=== PATIENT | male | born 1945 | race Caucasian/White ===

== ENCOUNTER → 2019-06-20 | Outpatient (CLI) | payer OTHER ==
[~2019-06-20] MED LIST: LEVO88TA2 PO; RT-ALBUTEROL SULF 2.5 MG/3 ML PRE-MIX VIAL INH ONE; RT-ALBUTEROL SULF 2.5 MG/3 ML PRE-MIX VIAL ONE
== END ==
LOC: RT 12:13
PROVIDERS: ATTEND Nurse Practitioner Family
DX: J43.9 Emphysema, unspecified (principal); Z72.0 Tobacco use
CPT/HCPCS: 94060; 94726; 94729

== ENCOUNTER → 2019-06-24 | Outpatient (CLI) | payer OTHER ==
[~2019-06-24] MED LIST changes: -RT-ALBUTEROL SULF 2.5 MG/3 ML PRE-MIX VIAL INH ONE; -RT-ALBUTEROL SULF 2.5 MG/3 ML PRE-MIX VIAL ONE
--- NOTE | 2019-06-24 13:28 | Diagnostic Imaging Report ---
INDICATION: Lung mass and cough. TECHNIQUE: Serum blood glucose level at the time of injection is 90 mg/dL. Patient was administered 15.3 mCi F-18 FDG intravenously and PET imaging was performed from the top of skull to mid thighs. Noncontrast CT was also performed for attenuation correction and anatomic correlation. All CT scans use one or more of the following dose optimizing techniques: automated exposure control, MA and/or KvP adjustment based on patient size and exam type or iterative reconstruction. COMPARISON: No prior PET CT studies available for comparison. FINDINGS: There is symmetric activity within the brain. Soft tissues of the neck are unremarkable. There is a spiculated hypermetabolic nodule in the medial left upper lobe measuring 9 mm in size. SUV max is 7.3 and this is concerning for small lung neoplasm. There is a second tiny hypermetabolic nodule in the left upper lobe slightly more inferior. This is just lateral to the aortic arch and demonstrates some activity with SUV max of 4.1. The remainder of the lung andrew are unremarkable. No mediastinal or hilar hypermetabolism is identified. Imaging to the abdomen and pelvis does show physiologic activity within the gastrointestinal and genitourinary tracts. There is an area of hypermetabolism in the left suprarenal location. This is lateral to the left adrenal gland and posterior to the stomach and slightly cephalad to the pancreatic tail. This demonstrates an SUV max of 16.9. Ill-defined soft tissue is identified on the noncontrast CT. No other suspicious foci are identified. IMPRESSION: 1. 9 mm spiculated left upper lobe nodule demonstrating hypermetabolism and suspicious for a small lung neoplasm. There is a second 6 mm nodule in the left upper lobe that also demonstrates hypermetabolism and this too may represent a tiny neoplastic nodule. 2. Hypermetabolic focus in the left upper quadrant of the abdomen in the suprarenal location, indeterminate. This is just lateral to the left adrenal gland and slightly cephalad to the pancreatic tail. Dedicated CT abdomen and pelvis would be recommended for further evaluation. Dictated by: Dictated on workstation # [id number]
== END ==
LOC: RAD 09:17 → EDUNIT# 09:45
PROVIDERS: ATTEND Nurse Practitioner Family
DX: J44.9 Chronic obstructive pulmonary disease, unspecified (principal); R91.8 Other nonspecific abnormal finding of lung field; R05 Cough; Z72.0 Tobacco use

== ENCOUNTER 2019-06-25 05:46 | Outpatient (CLI) | payer OTHER ==
[~2019-06-25] VITALS: Ht 172.7 cm; Wt 63.6 kg
[2019-06-25] MEDS ORDERED: LEVO88TA2 PO (12:11)
== END 2019-06-25 12:16 | disposition home or self-care (01) ==
LOC: PREOP 05:46
PROVIDERS: ATTEND Internal Medicine Critical Care Medicine
DX: Z01.818 Encounter for other preprocedural examination (principal)

== ENCOUNTER → 2019-06-30 | Outpatient (CLI) | payer OTHER ==
[~2019-06-30] MED LIST changes: +BARIUM SUSPENSION 2.1% (VANILLA SILQ) 450 ML PO ONE; +CATHETER FLUSH 10 ML SYR IV PRN; +HOLD METFORMIN - RECEIVED CONTRAST 20 ML VIAL IV SCH; +IOHEXOL 350 MG/ML 100 ML (OMNIPAQUE 350) VIAL IV ONE; +NS 100 ML (IVPB) BAG IV ONE
--- NOTE | 2019-06-30 10:18 | Diagnostic Imaging Report ---
PROCEDURE: CT abdomen and pelvis with and without contrast. TECHNIQUE: Precontrast acquisitions were acquired through the abdomen and pelvis. Multiple contiguous axial images were obtained through the abdomen and pelvis after the administration of intravenous contrast. Auto Exposure Controls were utilized during the CT exam to meet ALARA standards for radiation dose reduction. INDICATION: Pancreatic mass. FINDINGS: The lung bases are clear. The liver is normal in size without focal lesions. The gallbladder is unremarkable. There is no biliary ductal dilatation. The spleen is normal. There is a 2.3 cm low-density mass in the tail of the pancreas. The adrenal glands are unremarkable. The kidneys are normal in appearance. There is some atherosclerotic calcification of the aorta which is otherwise nonaneurysmal. The bowel gas pattern is nonspecific. There are small cysts in the kidneys. There is no free air. There is no ascites. There are no focal inflammatory changes. There is no pelvic mass, adenopathy, or free fluid. There are mild degenerative changes in the spine. IMPRESSION: There is a 2.3 cm low-density mass in the tail of the pancreas, suspect for pancreatic neoplasm. Small bilateral renal cysts. Dictated by: Dictated on workstation # [id number]
== END ==
LOC: RAD FS 08:49
PROVIDERS: ATTEND Internal Medicine Critical Care Medicine
DX: K86.89 Other specified diseases of pancreas (principal); N28.1 Cyst of kidney, acquired
CPT/HCPCS: 74178

== ENCOUNTER 2019-09-11 07:06 | Day surgery (SDC) | payer OTHER ==
[~2019-09-11] VITALS: Ht 172.7 cm; Wt 59.9 kg
[~2019-09-11 07:06] MED LIST changes: -BARIUM SUSPENSION 2.1% (VANILLA SILQ) 450 ML PO ONE; -CATHETER FLUSH 10 ML SYR IV PRN; -HOLD METFORMIN - RECEIVED CONTRAST 20 ML VIAL IV SCH; -IOHEXOL 350 MG/ML 100 ML (OMNIPAQUE 350) VIAL IV ONE; -NS 100 ML (IVPB) BAG IV ONE
--- OUTSIDE RECORDS SUMMARY | 2019-09-11 07:10 | XMS REPORT | Continuity of Care Document ---
Author Organization Unknown Address Unknown Phone Unavailable Allergies Active Description Code Type Severity Reaction Onset Reported/Identified Relationship to Patient Clinical Status Yes No Known Drug Allergies [id number] Drug Allergy Unknown N/A 06/20/2019 Medications There is no data. Problems Date Dx Coded Attending Type Code Diagnosis Diagnosed By 06/25/2019 RUTH VALDES DO Ot Z01.818 ENCOUNTER FOR OTHER PREPROCEDURAL EXAMIN 06/25/2019 SUNNI SUSANAN E COST ACCOUNTING MANAGER Ot J44.9 CHRONIC OBSTRUCTIVE PULMONARY DISEASE, U 06/25/2019 SUNNI, SUSANNA E COST ACCOUNTING MANAGER Ot R05 COUGH 06/25/2019 SUNNI, SUSANNA E COST ACCOUNTING MANAGER Ot R91.8 OTHER NONSPECIFIC ABNORMAL FINDING OF CINTHIA 06/25/2019 SUNNI, SUSANNA E COST ACCOUNTING MANAGER Ot Z72.0 TOBACCO USE 06/25/2019 SUNNI, SUSANNA E COST ACCOUNTING MANAGER Ot J43.9 EMPHYSEMA, UNSPECIFIED 06/25/2019 SUNNI, SUSANNA E COST ACCOUNTING MANAGER Ot Z72.0 TOBACCO USE 06/26/2019 SUNNI, SUSANNA E COST ACCOUNTING MANAGER Ot J43.9 EMPHYSEMA, UNSPECIFIED 06/26/2019 SUNNI, SUSANNA E COST ACCOUNTING MANAGER Ot Z72.0 TOBACCO USE 06/26/2019 SUNNI, SUSANNA E COST ACCOUNTING MANAGER Ot J44.9 CHRONIC OBSTRUCTIVE PULMONARY DISEASE, U 06/26/2019 SUNNI, SUSANNA E COST ACCOUNTING MANAGER Ot R05 COUGH 06/26/2019 SUNNI, SUSANNA E COST ACCOUNTING MANAGER Ot R91.8 OTHER NONSPECIFIC ABNORMAL FINDING OF CINTHIA 06/26/2019 SUNNI, SUSANNA E COST ACCOUNTING MANAGER Ot Z72.0 TOBACCO USE 06/26/2019 RUTH VALDES DO Ot Z01.818 ENCOUNTER FOR OTHER PREPROCEDURAL EXAMIN 06/26/2019 RUTH VALDES DO Ot F17.210 NICOTINE DEPENDENCE, CIGARETTES, UNCOMPL 06/26/2019 RUTH VALDES DO Ot J44. 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 89 OTHER SPECIFIED DISEASES OF PANCREAS 07/01/2019 RUTH VALDES DO Ot N28. 1 CYST OF KIDNEY, ACQUIRED 07/18/2019 RUTH VALDES DO Ot F17.210 NICOTINE DEPENDENCE, CIGARETTES, UNCOMPL 07/18/2019 RUTH VALDES DO Ot J44. 9 CHRONIC OBSTRUCTIVE PULMONARY DISEASE, U 07/18/2019 LUCIO DO, RUTH Fernandez Ot R05 COUGH 07/18/2019 LUCIO DO, RUTH Fernandez Ot Z79.899 OTHER PLUG DRILL OPERATOR (CURRENT) DRUG THERAPY 07/20/2019 RUTH VALDES DO Ot F17.210 NICOTINE DEPENDENCE, CIGARETTES, UNCOMPL 07/20/2019 RUTH VALDES DO Ot J44. 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 9 CHRONIC OBSTRUCTIVE PULMONARY DISEASE, U 08/11/2019 RUTH VALDES DO Ot R05 COUGH 08/11/2019 LUCIO DORUTH Ot Z79.899 OTHER FPC (CURRENT) DRUG THERAPY 08/11/2019 RUTH VALDES DO Ot F17.210 NICOTINE DEPENDENCE, CIGARETTES, UNCOMPL 08/11/2019 RUTH VALDES DO Ot J44. 9 CHRONIC OBSTRUCTIVE PULMONARY DISEASE, U 08/11/2019 LUCIORUTH DE LA FUENTE DO Ot R05 COUGH 08/11/2019 LUCIO CORREIARUTH Ot Z79.899 OTHER FPC (CURRENT) DRUG THERAPY Procedures There is no data. Results Test Result Range Complete blood count (CBC) with automate d white blood cell (WBC) differential - 06/26/19 08:47 Blood leukocytes automated count (number/volume) 6.2 10*3/uL 4.3-11.0 Blood erythrocytes automated count (number/volume) 4.15 10*6/uL 4.35-5.85 Venous blood hemoglobin measurement (mass/volume) 11.9 g/dL 13.3-17.7 Blood hematocrit (volume fraction) 35 % 40-54 Automated erythrocyte mean corpuscular volume 85 [ foz_us] 80-99 Automated erythrocyte mean corpuscular h emoglobin (mass per erythrocyte) 29 pg 25-34 Automated erythrocyte mean corpuscular h emoglobin concentration measurement (mass/volume) 34 g/dL 32-36 Automated erythrocyte distribution width ratio 22. 9 % 10.0- 14.5 Automated blood platelet count (count/volume) 69 1 0*3/uL 130-400 Automated blood neutrophils/100 leukocytes 51 % 42-75 Automated blood lymphocytes/100 leukocytes 26 % 12-44 Blood monocytes/100 leukocytes 19 % 0-12 Automated blood eosinophils/100 leukocytes 3 % 0-10 Automated blood basophils/100 leukocytes 1 % 0-10 Blood neutrophils automated count (number/volume) 3.2 10*3 1.8-7.8 Blood lymphocytes automated count (number/volume) 1.6 10*3 1.0-4.0 Blood monocytes automated count (number/volume) 1. 2 10*3 0.0-1.0 Automated eosinophil count 0.2 10*3/uL 0 .0-0.3 Automated blood basophil count (count/volume) 0.1 10*3/uL 0.0-0.1 Comprehensive metabolic panel - 06/26/19 08:47 Serum or plasma sodium measurement (moles/volume) 139 mmol/L 135-145 Serum or plasma potassium measurement (moles/volume) 4.3 mmol/L 3.6-5.0 Serum or plasma chloride measurement (moles/volume) 107 mmol/L 98-107 Carbon dioxide 26 mmol/L 21-32 Serum or plasma anion gap determination (moles/volume) 6 mmol/L 5-14 Serum or plasma urea nitrogen measurement (mass/volume ) 16 mg/dL 7-18 Serum or plasma creatinine measurement (mass/volume) 0.87 mg/dL 0.60-1.30 Serum or plasma urea nitrogen/creatinine mass ratio 18 NRG Serum or plasma creatinine measurement w ith calculation of estimated glomerular filtration rate > NRG Serum or plasma glucose measurement (mass/volume) 93 mg/dL 70-105 Serum or plasma calcium measurement (mass/volume) 9.0 mg/dL 8.5-10.1 Serum or plasma total bilirubin measurement (mass/volu me) 0.4 mg/dL 0.1-1.0 Serum or plasma alkaline phosphatase ada surement (enzymatic activity/volume) 48 U/L 40-136 Serum or plasma aspartate aminotransfera se measurement (enzymatic activity/volume) 15 U/L 5-34 Serum or plasma alanine aminotransferase measurement (enzymatic activity/volume) 16 U/L 0-55 Serum or plasma protein measurement (mass/volume) 6.2 g/dL 6.4-8.2 Serum or plasma albumin measurement (mass/volume) 3.7 g/dL 3.2-4.5 CALCIUM CORRECTED 9.2 mg/dL 8.5-10.1 Serum or plasma amylase measurement (enz ymatic activity/volume) - 06/26/19 08:47 Serum or plasma amylase measurement (enzymatic activit y/volume) 32 U/L 25-125 Lipase - 06/26/19 08:47 Lipase 16 U/L 8-78 Manual absolute plasma cell count - 11/07 08:47 Blood monocytes/100 leukocytes 17 % NRG Manual blood segmented neutrophils/100 leukocytes 64 % NRG Blood band neutrophils/100 leukocytes 0 % NRG Manual blood lymphocytes/100 leukocytes 12 % NRG Manual eosinophils/100 leukocytes in nose 2 % NRG Manual blood basophils/100 leukocytes 0 % NRG Blood lymphocytes variant/100 leukocytes 5 % NRG Blood anisocytosis detection by light microscopy M ARKED NRG Blood target cells detection by light microscopy M ODERATE NRG Blood spherocytes detection by light microscopy SL IGHT NRG Blood schistocytes detection by light microscopy S LIGHT NRG CA 19-9 - 02/06/20 08:47 CA 19-9 C 3488 u[iU]/mL 0-37 Sputum Gram stain - 06/26/19 09:30 Sputum Gram stain relevant, interpret with caution . NRG Bacteria identification in bronchial spe cimen by aerobe culture - 06/26/19 09:30 QUANTITY OF GROWTH . NRG Bacteria identification in bronchial specimen by aerob e culture [id number] NRG FTX;REPORTABLE OBSERVED ON PLATES AT [facility] NRG Mycobacterium species detection by organ ism specific culture - 06/26/19 09:30 QUANTITY OF GROWTH FEW NRG Mycobacterium species detection by organism specific c ulture [id number] NRG Fungus culture - 06/26/19 09:31 QUANTITY OF GROWTH Rare NRG Fungus culture [id number] NRG Encounters ACCT No. Visit Date/Time Discharge Status Pt. Type Provider Facility Loc./Unit Complaint [id number] 06/30/2019 08:49:00 020 23:59:59 CLS Outpatient RUTH VALDES DO [facility] RAD FS PANCREATIC MASS [id number] 06/26/2019 07:40:00 020 11:05:00 DIS Outpatient RUTH VALDES DO [facility] ENDO DYSPNEA/COUGH/COPD/OTHE R NONSPECIFIC ABNORMAL FIND [id number] 06/25/2019 05:46:00 12:16:00 DIS Outpatient RUTH VALDES DO [facility] PREOP BRONCHOSCOPY [id number] 06/24/2019 09:17:00 23:59:59 CLS Outpatient SUSANNA MOELLER APRN [facility] RAD COUGH,TOBACCO U SER [id number] 06/20/2019 12:13:00 020 23:59:59 CLS Outpatient SUSANNA MOELLER COST ACCOUNTING MANAGER [facility] RT COUGH,TOBACCO U SER [id number] 09/10/2019 14:33:[address] Outpatient DEBRA BACH [facility] ONC
[2019-09-11] MEDS ORDERED: 0.9% SODIUM CHLORIDE PF INJ 20 ML VIAL ONE (07:12)
[2019-09-11] MEDS ORDERED: HEParin (CENTRAL IV FLUSH) 500 UNIT/5 ML SYR ONE (07:12)
[2019-09-11] MEDS ORDERED: BUP/EPI 0.5% 1:200,000 (SENSORCAINE) 30 ML VIAL ONE (07:12)
[2019-09-11 07:20] VITALS: BP 121/71
[2019-09-11] MEDS ORDERED: fentaNYL INJECTION 100 MCG/2 ML AMP ONE (07:25)
[2019-09-11] MEDS ORDERED: MIDAZOLAM 2 MG/2 ML (VERSED) VIAL ONE (07:25)
[2019-09-11] MEDS ORDERED: PROPOFOL INJECTION 50 ML IV ONE (07:25)
[2019-09-11] MEDS ORDERED: LACTATED RINGERS 1,000 ML IV PRN (07:56)
[2019-09-11] MEDS ORDERED: ceFAZolin INJECTION 1,000 MG ONE (07:59)
[2019-09-11] MEDS ORDERED: WATER (STERILE) FOR INJECTION 10 ML ONE (07:59)
[2019-09-11] MEDS ORDERED: BUDE10.22 IH (08:00)
[2019-09-11] MEDS ORDERED: TIOT18CA2 IH (08:00)
[2019-09-11] MEDS ORDERED: RT-ALBUINH INH (08:00)
[2019-09-11] MEDS ORDERED: LEVO125T6 PO (08:01)
[2019-09-11] MEDS ORDERED: ceFAZolin INJECTION 1,000 MG in WATER (STERILE) FOR INJECTION 10 ML IV ONE (08:15)
[2019-09-11] MEDS ORDERED: CATHETER FLUSH 10 ML SYR IV PRN (08:15)
--- NOTE | 2019-09-11 08:49 | Progress Note-Pre Operative ---
Pre-Operative Progress Note H&P Reviewed The H&P was reviewed, patient examined and no changes noted. Date Seen by Provider: Sep 11, 2019 Time Seen by Provider: 08:39 Date H&P Reviewed: Sep 11, 2019 Time H&P Reviewed: 08:39 Pre-Operative Diagnosis: pancreatic ca c mets LARY SCOTT DO Sep 11, 2019 08:49
[2019-09-11] MEDS ORDERED: ONDANSETRON 4 MG/2 ML (SDV) Z0FRAN ONE (09:19)
[2019-09-11 09:30] VITALS: BP 110/59
--- NOTE | 2019-09-11 09:38 | Discharge Inst-Simple/Standard ---
Discharge Inst-Standard Patient Instructions/Follow Up Plan of Care/Instructions/FU: Ice pack on 15 min and off 30 min and repeat for discomfort and to reduce swelling. Becky 2-3 weeks. Activity as Tolerated: No Discharge Diet: Regular Diet Other Inst to Patient Follow up Appt: Make appointment for 2 week. Instructions: No lifting greater than 10 pounds. No strenuous activity. May shower in 24 hours, no tub bath or soaking. Use incentive spirometer at home as directed. No Smoking Skin/Wound Care: You have special glue over your incision that will fall off on it's own. Symptoms to Report: Appetite Changes, Extremity Discoloration, Numbness/Tingling, Swelling Increased, Bleeding Excessive, Eyesight Changes, Pain Increased, Urine Color Change, Constipation(Persistent), Fever over 101 degree F, Pain/Pressure in chest, Urinating Difficulty, Cough Up/Vomit Blood, Heart Beat Irreg/Pounding, Pain/Pressure in jaw, Vaginal Bleeding Increase, Cramps in feet or legs, Lightheadedness, Pain/Pressure in shoulder, Diarrhea(Persistent), Memory Changes Suddenly, Questions/Concerns, Weight gain consecutive days, Dizziness/Fainting, Nausea/Vomiting, Shortness of Breath, Weight gain over 2 pounds If questions or concerns contact your physician Or seek help at emergency department. LARY SCOTT DO Sep 11, 2019 09:38
[2019-09-11 09:40] VITALS: BP 115/69
[2019-09-11] MEDS ORDERED: ONDANSETRON 4 MG/2 ML (SDV) Z0FRAN IVP PRN (09:45)
[2019-09-11] MEDS ORDERED: HYDROmorphone 2 MG/ML VIAL (DILAUDID) IV ONE (09:45)
--- NOTE | 2019-09-11 09:46 | Progress Note-Post Operative ---
Post-Operative Progess Note Surgeon (s)/Field Crop Grower (s) Surgeon LARY SCOTT DO Field Crop Grower: na Pre-Operative Diagnosis pancreatic ca c mets Post-Operative Diagnosis same Procedure & Operative Findings Date of Procedure 09/11/19 Procedure Performed/Findings PROCEDURE: Right internal jugular port placement using ultrasound guidance. COMPLICATIONS: None. INDICATIONS: The patient is a 74 year old male with metastatic pancreatic cancer. Patient understands the risks and benefits of port placement and wished to proceed with the procedure. Consent was signed on the chart. PROCEDURE: The patient was taken to the operating suite, was prepped and draped in the sterile fashion. A surgical pause was performed. Ultrasound was used to locate the internal jugular vein. Once located anesthetic was infiltrated above it. Using micro-access kit, the right internal vein was accessed. Dark nonpulsatile blood was withdrawn. The wire was inserted. Fluoroscopy assured proper placement. The needle was removed. The micro-access dilator was advanced over the wire and the wire was removed. The regular wire was inserted and fluoroscopy assured proper placement. The wire was then secured. Local anesthetic was used to anesthetize from the neck for tunneling down to the right chest and for pocket creation. A 15 blade scalpel was used to make an incision over the right chest. Cautery was used to dissect down to the pectoral fascia. A pocket was created with blunt dissection. The dilator sheath was then advanced over the wire under fluoroscopy and the dilator and wire were removed. The Groshong catheter was inserted through the sheath and the sheath was then removed. The Groshong wire was removed. The catheter was then tunneled to the right chest pocket. Fluoroscopy was used to cut to length and this was then attached to the port which was then placed within the pocket. The port was then accessed without difficulty. It was then flushed with saline and then heparin. The subcutaneous tissues were then reapproximated using 3-0 Vicryl. The areas were then washed and dried. Skin Affix was placed over incision. The insertion point of the neck Skin Affix was placed over the incision. The patient tolerated the procedure well without complication and was taken to recovery room in stable condition. Chest x-ray is pending. Anesthesia Type mac local Estimated Blood Loss Estimated blood loss (mL): min Specimens/Packing Specimens Removed LARY Buchanan DO Sep 11, 2019 09:45
[2019-09-11 09:50] VITALS: BP 118/63
--- NOTE | 2019-09-11 09:56 | Diagnostic Imaging Report ---
INDICATION: Port placement COMPARISON is made study of 06/26/2019 Single AP view of the chest reveals heart size and pulmonary vascularity within normal limits. There is no evidence of pneumothorax. There is mild blunting of left costophrenic sulcus. Occasional calcified granulomas are seen. Right anterior chest wall port is in place with catheter tip reaching the upper superior vena cava. IMPRESSION: There maybe a small amount of left pleural fluid. Otherwise, there is no evidence of acute abnormality or complication post port placement. Dictated by: Dictated on workstation # [id number]
[2019-09-11 10:00] VITALS: BP_SYST 117; BP_SYST 118; BP_DIAS 62; BP_DIAS 63
--- NOTE | 2019-09-11 10:04 | Diagnostic Imaging Report ---
INDICATION: PowerPort placement COMPARISON: Unavailable TECHNIQUE: Single intraoperative image of the upper chest is obtained dated 09/11/2019. FINDINGS: Intraoperative imaging demonstrates a right-sided Port-A-Cath in place with the distal tip extending into the superior vena cava where the distal tip is not optimally visualized. IMPRESSION: Intraoperative imaging from placement of a right-sided Port-A-Cath. Recommend dedicated radiographs of the chest at the completion of the exam to evaluate the entire catheter and to evaluate for any possible postprocedural complication. See surgical note for full details. Fluoroscopy time: 32.8 seconds. Dictated by: Dictated on workstation # [id number]
[2019-09-11 10:30] VITALS: BP 123/67
--- NOTE | 2019-09-11 11:08 | Anesthesia-General Post-Op ---
MAC Patient Condition Mental Status/LOC: Same as Preop Cardiovascular: Satisfactory Nausea/Vomiting: Absent Respiratory: Satisfactory Pain: Controlled Complications: Present Post Op Complications Complications Pt had an episode of vomiting during procedure. Airway was suctioned immediately and head was put in reverse T. Advised pt via telephone after procedure of events and to follow up with primary care if fever/malaise or cough in next 24 to 48 hours. Pt understood instructions. Follow Up Care/Instructions Patient Instructions None needed. Anesthesiology Discharge Order Discharge Order Patient is doing well, no complaints, stable vital signs. LANDY BRAGG CRNA Sep 11, 2019 11:08
== END 2019-09-11 10:50 | disposition home or self-care (01) ==
LOC: SDC 07:06
PROVIDERS: ATTEND Surgery
DX: C25.9 Malignant neoplasm of pancreas, unspecified (principal); I87.2 Venous insufficiency (chronic) (peripheral); C78.7 Secondary malignant neoplasm of liver and intrahepatic bile duct; J43.9 Emphysema, unspecified; F17.210 Nicotine dependence, cigarettes, uncomplicated; Z90.89 Acquired absence of other organs; Z80.0 Family history of malignant neoplasm of digestive organs; Z79.899 Other long term (current) drug therapy
CPT/HCPCS: 71045; 87081

== ENCOUNTER 2019-10-15 10:01 | Outpatient (RCR) | payer OTHER ==
[2019-09-02 15:26] LABS: BASOPHILS # (AUTO) 0.1 10^3/uL (0.0-0.1); BASOPHILS % (AUTO) 1 % (0-10); EOSINOPHILS # (AUTO) 0.1 10^3/uL (0.0-0.3); EOSINOPHILS % (AUTO) 1 % (0-10); HEMATOCRIT 35 % (40-54); HEMOGLOBIN 12.1 G/DL (13.3-17.7); LYMPHOCYTES # (AUTO) 1.3 X 10^3 (1.0-4.0); LYMPHOCYTES % (AUTO) 10 % (12-44); MEAN CORPUSCULAR HEMOGLOBIN 28 PG (25-34); MEAN CORPUSCULAR HGB CONC 34 G/DL (32-36); MEAN CORPUSCULAR VOLUME 82 FL (80-99); MONOCYTES # (AUTO) 2.8 X 10^3 (0.0-1.0); MONOCYTES % (AUTO) 21 % (0-12); NEUTROPHILS # (AUTO) 9.2 X 10^3 (1.8-7.8); NEUTROPHILS % (AUTO) 68 % (42-75); PLATELET COUNT 147 10^3/uL (130-400); RED CELL DISTRIBUTION WIDTH 21.7 % (10.0-14.5); WHITE BLOOD COUNT 13.6 10^3/uL (4.3-11.0)
[2019-09-02 15:44] LABS: ALANINE AMINOTRANSFERASE 52 U/L (0-55); ALBUMIN 3.4 GM/DL (3.2-4.5); ALKALINE PHOSPHATASE 60 U/L (40-136); BILIRUBIN,TOTAL 0.5 MG/DL (0.1-1.0); BUN/CREATININE RATIO 16; CALCIUM 8.8 MG/DL (8.5-10.1); CARBON DIOXIDE 23 MMOL/L (21-32); CHLORIDE 98 MMOL/L (98-107); CREATININE SERUM 0.75 MG/DL (0.60-1.30); GFR ESTIMATED > 60; GLUCOSE 120 MG/DL (70-105); POTASSIUM 4.3 MMOL/L (3.6-5.0); SODIUM 131 MMOL/L (135-145); TOTAL PROTEIN 6.4 GM/DL (6.4-8.2)
[2019-09-10 15:01] LABS: BASOPHILS # (AUTO) 0.1 10^3/uL (0.0-0.1); BASOPHILS % (AUTO) 0 % (0-10); EOSINOPHILS # (AUTO) 0.1 10^3/uL (0.0-0.3); EOSINOPHILS % (AUTO) 1 % (0-10); HEMATOCRIT 36 % (40-54); HEMOGLOBIN 12.2 G/DL (13.3-17.7); LYMPHOCYTES # (AUTO) 1.9 X 10^3 (1.0-4.0); LYMPHOCYTES % (AUTO) 13 % (12-44); MEAN CORPUSCULAR HEMOGLOBIN 28 PG (25-34); MEAN CORPUSCULAR HGB CONC 34 G/DL (32-36); MEAN CORPUSCULAR VOLUME 84 FL (80-99); MONOCYTES % (AUTO) 20 % (0-12); NEUTROPHILS # (AUTO) 9.6 X 10^3 (1.8-7.8); NEUTROPHILS % (AUTO) 65 % (42-75); PLATELET COUNT 135 10^3/uL (130-400); RED CELL DISTRIBUTION WIDTH 22.1 % (10.0-14.5); WHITE BLOOD COUNT 14.7 10^3/uL (4.3-11.0)
[2019-09-10 15:20] LABS: ALANINE AMINOTRANSFERASE 44 U/L (0-55); ALBUMIN 3.5 GM/DL (3.2-4.5); ALKALINE PHOSPHATASE 53 U/L (40-136); BILIRUBIN,TOTAL 0.3 MG/DL (0.1-1.0); BUN/CREATININE RATIO 19; CALCIUM 9.3 MG/DL (8.5-10.1); CARBON DIOXIDE 27 MMOL/L (21-32); CHLORIDE 98 MMOL/L (98-107); CREATININE SERUM 0.73 MG/DL (0.60-1.30); GFR ESTIMATED > 60; GLUCOSE 68 MG/DL (70-105); POTASSIUM 4.6 MMOL/L (3.6-5.0); SODIUM 134 MMOL/L (135-145); TOTAL PROTEIN 6.8 GM/DL (6.4-8.2)
[2019-09-24 10:14] LABS: BASOPHILS % (AUTO) 1 % (0-10); EOSINOPHILS % (AUTO) 0 % (0-10); HEMATOCRIT 33 % (40-54); HEMOGLOBIN 11.1 G/DL (13.3-17.7); LYMPHOCYTES # (AUTO) 1.7 X 10^3 (1.0-4.0); LYMPHOCYTES % (AUTO) 21 % (12-44); MEAN CORPUSCULAR HEMOGLOBIN 28 PG (25-34); MEAN CORPUSCULAR HGB CONC 34 G/DL (32-36); MEAN CORPUSCULAR VOLUME 84 FL (80-99); MONOCYTES # (AUTO) 1.4 X 10^3 (0.0-1.0); MONOCYTES % (AUTO) 17 % (0-12); NEUTROPHILS # (AUTO) 4.9 X 10^3 (1.8-7.8); NEUTROPHILS % (AUTO) 61 % (42-75); PLATELET COUNT 114 10^3/uL (130-400); RED CELL DISTRIBUTION WIDTH 23.6 % (10.0-14.5); WHITE BLOOD COUNT 8.1 10^3/uL (4.3-11.0)
[2019-09-24 10:23] LABS: ALBUMIN 3.6 GM/DL (3.2-4.5); CHLORIDE 102 MMOL/L (98-107); POTASSIUM 4.4 MMOL/L (3.6-5.0); SODIUM 134 MMOL/L (135-145)
[2019-09-24 10:26] LABS: GLUCOSE 88 MG/DL (70-105); TOTAL PROTEIN 6.4 GM/DL (6.4-8.2)
[2019-09-24 10:27] LABS: BILIRUBIN,TOTAL 0.5 MG/DL (0.1-1.0); CARBON DIOXIDE 23 MMOL/L (21-32)
[2019-09-24 10:29] LABS: ALKALINE PHOSPHATASE 47 U/L (40-136); CREATININE SERUM 0.65 MG/DL (0.60-1.30); GFR ESTIMATED > 60
[2019-09-24 10:30] LABS: BUN/CREATININE RATIO 17
[2019-09-24 10:32] LABS: ALANINE AMINOTRANSFERASE 33 U/L (0-55)
[2019-10-01 09:53] LABS: BASOPHILS % (AUTO) 1 % (0-10); EOSINOPHILS % (AUTO) 0 % (0-10); HEMATOCRIT 29 % (40-54); HEMOGLOBIN 9.9 G/DL (13.3-17.7); LYMPHOCYTES % (AUTO) 39 % (12-44); MEAN CORPUSCULAR HEMOGLOBIN 29 PG (25-34); MEAN CORPUSCULAR HGB CONC 34 G/DL (32-36); MEAN CORPUSCULAR VOLUME 85 FL (80-99); MONOCYTES % (AUTO) 12 % (0-12); NEUTROPHILS # (AUTO) 1.4 X 10^3 (1.8-7.8); NEUTROPHILS % (AUTO) 48 % (42-75); PLATELET COUNT 44 10^3/uL (130-400); WHITE BLOOD COUNT 2.9 10^3/uL (4.3-11.0)
[2019-10-01 09:54] LABS: LYMPHOCYTES # (AUTO) 1.1 X 10^3 (1.0-4.0); MONOCYTES # (AUTO) 0.4 X 10^3 (0.0-1.0)
[2019-10-01 10:06] LABS: BUN/CREATININE RATIO 16; CALCIUM 8.7 MG/DL (8.5-10.1); CARBON DIOXIDE 23 MMOL/L (21-32); CHLORIDE 104 MMOL/L (98-107); CREATININE SERUM 0.68 MG/DL (0.60-1.30); GFR ESTIMATED > 60; GLUCOSE 110 MG/DL (70-105); POTASSIUM 4.1 MMOL/L (3.6-5.0); SODIUM 135 MMOL/L (135-145)
[2019-10-08 09:20] LABS: BASOPHILS % (AUTO) 0 % (0-10); EOSINOPHILS % (AUTO) 1 % (0-10); HEMATOCRIT 32 % (40-54); HEMOGLOBIN 10.7 G/DL (13.3-17.7); LYMPHOCYTES # (AUTO) 1.5 X 10^3 (1.0-4.0); LYMPHOCYTES % (AUTO) 23 % (12-44); MEAN CORPUSCULAR HEMOGLOBIN 29 PG (25-34); MEAN CORPUSCULAR HGB CONC 33 G/DL (32-36); MEAN CORPUSCULAR VOLUME 86 FL (80-99); MONOCYTES # (AUTO) 1.8 X 10^3 (0.0-1.0); MONOCYTES % (AUTO) 27 % (0-12); NEUTROPHILS # (AUTO) 3.2 X 10^3 (1.8-7.8); NEUTROPHILS % (AUTO) 49 % (42-75); PLATELET COUNT 68 10^3/uL (130-400); RED CELL DISTRIBUTION WIDTH 23.7 % (10.0-14.5); WHITE BLOOD COUNT 6.5 10^3/uL (4.3-11.0)
[2019-10-08 09:42] LABS: BUN/CREATININE RATIO 18; CALCIUM 9.2 MG/DL (8.5-10.1); CARBON DIOXIDE 23 MMOL/L (21-32); CHLORIDE 104 MMOL/L (98-107); CREATININE SERUM 0.74 MG/DL (0.60-1.30); GFR ESTIMATED > 60; GLUCOSE 98 MG/DL (70-105); POTASSIUM 4.3 MMOL/L (3.6-5.0); SODIUM 136 MMOL/L (135-145)
[~2019-10-15] VITALS: Ht 172.7 cm; Wt 60.8 kg
[~2019-10-15 10:01] MED LIST changes: +BUDE10.22 IH; +GEMCITABINE HCL 1 GM, GEMCITABINE HCL 500 MG in NS (IVPB) CANCER CENTER 100 ML IV SCH; +LEVO125T6 PO; +NS IV 1000 ML (CANCER CTR) IV SCH; +PACLitaxel PROTEIN 200 MG in EMPTY IV BAG (PVC) CANCER CTR 1 EA IV SCH; +PALONOSETRON HCL 0.25 MG, DEXAMETHASONE INJECTION 10 MG in NS (IVPB) CANCER CENTER 50 ML IV SCH; +RT-ALBUINH INH; +TIOT18CA2 IH
[2019-10-15 10:17] LABS: BASOPHILS # (AUTO) 0.1 10^3/uL (0.0-0.1); BASOPHILS % (AUTO) 1 % (0-10); EOSINOPHILS % (AUTO) 0 % (0-10); HEMATOCRIT 33 % (40-54); HEMOGLOBIN 10.7 G/DL (13.3-17.7); LYMPHOCYTES # (AUTO) 1.8 X 10^3 (1.0-4.0); LYMPHOCYTES % (AUTO) 22 % (12-44); MEAN CORPUSCULAR HEMOGLOBIN 29 PG (25-34); MEAN CORPUSCULAR HGB CONC 33 G/DL (32-36); MEAN CORPUSCULAR VOLUME 87 FL (80-99); MONOCYTES # (AUTO) 1.6 X 10^3 (0.0-1.0); MONOCYTES % (AUTO) 19 % (0-12); NEUTROPHILS # (AUTO) 4.8 X 10^3 (1.8-7.8); NEUTROPHILS % (AUTO) 58 % (42-75); PLATELET COUNT 73 10^3/uL (130-400); RED CELL DISTRIBUTION WIDTH 23.7 % (10.0-14.5); WHITE BLOOD COUNT 8.3 10^3/uL (4.3-11.0)
[2019-10-15 10:36] LABS: ALANINE AMINOTRANSFERASE 16 U/L (0-55); ALBUMIN 3.7 GM/DL (3.2-4.5); ALKALINE PHOSPHATASE 59 U/L (40-136); BILIRUBIN,TOTAL 0.4 MG/DL (0.1-1.0); BUN/CREATININE RATIO 18; CARBON DIOXIDE 24 MMOL/L (21-32); CHLORIDE 103 MMOL/L (98-107); CREATININE SERUM 0.72 MG/DL (0.60-1.30); GFR ESTIMATED > 60; GLUCOSE 91 MG/DL (70-105); POTASSIUM 4.5 MMOL/L (3.6-5.0); SODIUM 135 MMOL/L (135-145); TOTAL PROTEIN 6.7 GM/DL (6.4-8.2)
[2019-10-15] MEDS ORDERED: PACLitaxel PROTEIN 160 MG in EMPTY IV BAG (PVC) CANCER CTR 1 EA IV SCH (11:00)
[2019-10-15] MEDS ORDERED: GEMCITABINE HCL IV SCH (11:00)
[2019-10-15] MEDS ORDERED: NS IV SCH (11:00)
== END 2019-10-20 | disposition home or self-care (01) ==
LOC: ONC 10:01
PROVIDERS: ATTEND Internal Medicine Hematology & Oncology
DX: Z51.11 Encounter for antineoplastic chemotherapy (principal); C25.2 Malignant neoplasm of tail of pancreas; K22.70 Barrett's esophagus without dysplasia; D69.6 Thrombocytopenia, unspecified; D64.9 Anemia, unspecified; R92.8 Other abnormal and inconclusive findings on diagnostic imaging of breast; Z72.0 Tobacco use
CPT/HCPCS: 36415; 36591; 80048; 80053; 85025; 86301; 96375; 96413; 96417; 99213; 99214

== ENCOUNTER 2019-11-12 08:30 | Outpatient (RCR) | payer OTHER ==
[~2019-11-12 08:30] MED LIST changes: -GEMCITABINE HCL 1 GM, GEMCITABINE HCL 500 MG in NS (IVPB) CANCER CENTER 100 ML IV SCH; -NS IV 1000 ML (CANCER CTR) IV SCH; -PACLitaxel PROTEIN 200 MG in EMPTY IV BAG (PVC) CANCER CTR 1 EA IV SCH; -PALONOSETRON HCL 0.25 MG, DEXAMETHASONE INJECTION 10 MG in NS (IVPB) CANCER CENTER 50 ML IV SCH
[2019-11-12 09:29] LABS: BASOPHILS % (AUTO) 2 % (0-10); EOSINOPHILS % (AUTO) 1 % (0-10); HEMATOCRIT 33 % (40-54); LYMPHOCYTES % (AUTO) 43 % (12-44); MEAN CORPUSCULAR HEMOGLOBIN 30 PG (25-34); MEAN CORPUSCULAR HGB CONC 33 G/DL (32-36); MEAN CORPUSCULAR VOLUME 88 FL (80-99); MONOCYTES % (AUTO) 14 % (0-12); NEUTROPHILS % (AUTO) 41 % (42-75); PLATELET COUNT 55 10^3/uL (130-400); WHITE BLOOD COUNT 3.8 10^3/uL (4.3-11.0)
[2019-11-12 09:30] LABS: BASOPHILS # (AUTO) 0.1 10^3/uL (0.0-0.1); LYMPHOCYTES # (AUTO) 1.6 X 10^3 (1.0-4.0); MONOCYTES # (AUTO) 0.5 X 10^3 (0.0-1.0); NEUTROPHILS # (AUTO) 1.6 X 10^3 (1.8-7.8)
[2019-11-12 09:34] LABS: BUN/CREATININE RATIO 17; CALCIUM 9.3 MG/DL (8.5-10.1); CARBON DIOXIDE 24 MMOL/L (21-32); CHLORIDE 99 MMOL/L (98-107); CREATININE SERUM 0.69 MG/DL (0.60-1.30); GFR ESTIMATED > 60; GLUCOSE 103 MG/DL (70-105); POTASSIUM 4.6 MMOL/L (3.6-5.0); SODIUM 135 MMOL/L (135-145)
== END 2020-02-10 | disposition home or self-care (01) ==
LOC: LAB FS 08:30
PROVIDERS: ATTEND Internal Medicine Hematology & Oncology
DX: C25.2 Malignant neoplasm of tail of pancreas (principal); C78.7 Secondary malignant neoplasm of liver and intrahepatic bile duct; R91.8 Other nonspecific abnormal finding of lung field
CPT/HCPCS: 36415; 80048; 85025

== ENCOUNTER → 2019-12-04 | Outpatient (CLI) | payer OTHER ==
[~2019-12-04] MED LIST changes: +CATHETER FLUSH 10 ML SYR IV PRN; +HOLD METFORMIN - RECEIVED CONTRAST 20 ML VIAL IV SCH; +IOHEXOL 350 MG/ML 100 ML (OMNIPAQUE 350) VIAL IV ONE; +NS 100 ML (IVPB) BAG IV ONE
--- NOTE | 2019-12-04 09:30 | Diagnostic Imaging Report ---
PROCEDURE: CT chest with contrast, CT abdomen and pelvis with and without contrast. TECHNIQUE: Pre and post intravenous contrast axial imaging of the abdomen and pelvis and post contrast axial imaging of the chest were performed. Auto Exposure Controls were utilized during the CT exam to meet ALARA standards for radiation dose reduction. INDICATION: Pancreatic carcinoma and COPD. Study is performed for follow-up. Comparison is made with prior CT abdomen and pelvis from 06/30/2019. Comparison is also made with CT/PET study from 06/24/2019. CT CHEST: No axillary lymphadenopathy is detected. No definite mediastinal or hilar lymphadenopathy is identified. No pericardial or pleural fluid is detected. A right chest wall port has tip within the SVC. Parenchymal evaluation again demonstrates centrilobular emphysematous changes. Spiculated mass in the medial left upper lobe demonstrates increase in size now measuring 15 mm compared with 9 mm. A 2nd density slightly more inferior in the left upper lobe also appears to be increased measuring 11 mm compared with 6 mm. Tiny nodule adjacent to the major fissure on the left in the superior segment left lower lobe is seen measuring 5 mm. There are 2 subpleural nodules in the right lower lobe, image 72 measuring 2 to 3 mm in size. A nodule in the lateral aspect of the right middle lobe measures 4 mm, similar to prior. There are subcentimeter calcified nodules as well consists of granulomas. IMPRESSION: 1. Increase in size of spiculated densities in the left upper lobe. There also appear to be several small nodules in both lungs, suspicious for metastatic disease. Continued follow-up is recommended. CT abdomen and pelvis: Patient has developed several low densities within the liver consistent with hepatic metastatic disease. Lesions measure approximately 12 mm or less. The gallbladder is unremarkable. No biliary ductal dilatation is seen. Low-density mass tail of the pancreas previously described is again noted, may be slightly larger on today's exam 2.5 cm compared with 2.3 cm. No adrenal mass is identified. Kidneys are unremarkable apart from cortical low density suggestive of cysts. Aorta and iliac vessels are heavily calcified. Small and large bowel loops are normal caliber. There is no ascites. Bladder is unremarkable. No definite abdominal or pelvic lymphadenopathy is detected. Bony structures are unremarkable. IMPRESSION: 1. Slight increase in size of pancreatic tail mass. The patient has also developed hepatic metastatic disease since prior CT from 06/30/2019. Dictated by: Dictated on workstation # [id number]
== END ==
LOC: RAD 08:31
PROVIDERS: ATTEND Internal Medicine Hematology & Oncology
DX: C25.2 Malignant neoplasm of tail of pancreas (principal); J44.9 Chronic obstructive pulmonary disease, unspecified; J98.4 Other disorders of lung; Z95.828 Presence of other vascular implants and grafts
CPT/HCPCS: 71260; 74178

== ENCOUNTER 2020-01-07 08:22 | Outpatient (RCR) | payer OTHER ==
[2019-10-22 09:15] LABS: BASOPHILS % (AUTO) 1 % (0-10); EOSINOPHILS % (AUTO) 0 % (0-10); HEMATOCRIT 28 % (40-54); HEMOGLOBIN 9.3 G/DL (13.3-17.7); LYMPHOCYTES # (AUTO) 1.2 X 10^3 (1.0-4.0); LYMPHOCYTES % (AUTO) 38 % (12-44); MEAN CORPUSCULAR HEMOGLOBIN 29 PG (25-34); MEAN CORPUSCULAR HGB CONC 33 G/DL (32-36); MEAN CORPUSCULAR VOLUME 87 FL (80-99); MONOCYTES # (AUTO) 0.4 X 10^3 (0.0-1.0); MONOCYTES % (AUTO) 13 % (0-12); NEUTROPHILS # (AUTO) 1.5 X 10^3 (1.8-7.8); NEUTROPHILS % (AUTO) 48 % (42-75); RED CELL DISTRIBUTION WIDTH 22.4 % (10.0-14.5); WHITE BLOOD COUNT 3.1 10^3/uL (4.3-11.0)
[2019-10-22 09:20] LABS: PLATELET COUNT 27 10^3/uL (130-400)
[2019-10-22 09:32] LABS: BUN/CREATININE RATIO 17; CALCIUM 8.7 MG/DL (8.5-10.1); CARBON DIOXIDE 22 MMOL/L (21-32); CHLORIDE 104 MMOL/L (98-107); CREATININE SERUM 0.75 MG/DL (0.60-1.30); GFR ESTIMATED > 60; GLUCOSE 85 MG/DL (70-105); POTASSIUM 4.3 MMOL/L (3.6-5.0); SODIUM 135 MMOL/L (135-145)
[2019-10-29 09:59] LABS: BUN/CREATININE RATIO 18; CALCIUM 9.4 MG/DL (8.5-10.1); CARBON DIOXIDE 25 MMOL/L (21-32); CHLORIDE 100 MMOL/L (98-107); CREATININE SERUM 0.85 MG/DL (0.60-1.30); GFR ESTIMATED > 60; GLUCOSE 109 MG/DL (70-105); HEMATOCRIT 51 % (40-54); HEMOGLOBIN 16.7 G/DL (13.3-17.7); MEAN CORPUSCULAR HEMOGLOBIN 29 PG (25-34); POTASSIUM 4.7 MMOL/L (3.6-5.0); SODIUM 137 MMOL/L (135-145); WHITE BLOOD COUNT 6.8 10^3/uL (4.3-11.0)
[2019-10-29 10:00] LABS: BASOPHILS # (AUTO) 0.1 10^3/uL (0.0-0.1); BASOPHILS % (AUTO) 2 % (0-10); EOSINOPHILS # (AUTO) 0.1 10^3/uL (0.0-0.3); EOSINOPHILS % (AUTO) 1 % (0-10); LYMPHOCYTES # (AUTO) 1.9 X 10^3 (1.0-4.0); LYMPHOCYTES % (AUTO) 28 % (12-44); MEAN CORPUSCULAR HGB CONC 33 G/DL (32-36); MEAN CORPUSCULAR VOLUME 89 FL (80-99); MONOCYTES # (AUTO) 1.4 X 10^3 (0.0-1.0); MONOCYTES % (AUTO) 21 % (0-12); NEUTROPHILS # (AUTO) 3.3 X 10^3 (1.8-7.8); NEUTROPHILS % (AUTO) 49 % (42-75); PLATELET COUNT 96 10^3/uL (130-400); RED CELL DISTRIBUTION WIDTH 26.1 % (10.0-14.5)
[2019-11-05 09:43] LABS: BASOPHILS # (AUTO) 0.1 10^3/uL (0.0-0.1); BASOPHILS % (AUTO) 1 % (0-10); EOSINOPHILS # (AUTO) 0.1 10^3/uL (0.0-0.3); EOSINOPHILS % (AUTO) 1 % (0-10); HEMATOCRIT 34 % (40-54); HEMOGLOBIN 11.4 G/DL (13.3-17.7); LYMPHOCYTES # (AUTO) 2.2 X 10^3 (1.0-4.0); LYMPHOCYTES % (AUTO) 23 % (12-44); MEAN CORPUSCULAR HEMOGLOBIN 30 PG (25-34); MEAN CORPUSCULAR HGB CONC 33 G/DL (32-36); MEAN CORPUSCULAR VOLUME 88 FL (80-99); MONOCYTES % (AUTO) 21 % (0-12); NEUTROPHILS # (AUTO) 5.4 X 10^3 (1.8-7.8); NEUTROPHILS % (AUTO) 56 % (42-75); PLATELET COUNT 84 10^3/uL (130-400); RED CELL DISTRIBUTION WIDTH 22.7 % (10.0-14.5); WHITE BLOOD COUNT 9.7 10^3/uL (4.3-11.0)
[2019-11-05 10:05] LABS: ALANINE AMINOTRANSFERASE 14 U/L (0-55); ALBUMIN 3.7 GM/DL (3.2-4.5); ALKALINE PHOSPHATASE 63 U/L (40-136); BILIRUBIN,TOTAL 0.4 MG/DL (0.1-1.0); BUN/CREATININE RATIO 19; CALCIUM 9.1 MG/DL (8.5-10.1); CARBON DIOXIDE 24 MMOL/L (21-32); CHLORIDE 102 MMOL/L (98-107); CREATININE SERUM 0.72 MG/DL (0.60-1.30); GFR ESTIMATED > 60; GLUCOSE 89 MG/DL (70-105); POTASSIUM 4.3 MMOL/L (3.6-5.0); SODIUM 133 MMOL/L (135-145); TOTAL PROTEIN 6.7 GM/DL (6.4-8.2)
[2019-11-20 09:17] LABS: BASOPHILS % (AUTO) 0 % (0-10); EOSINOPHILS # (AUTO) 0.1 10^3/uL (0.0-0.3); EOSINOPHILS % (AUTO) 1 % (0-10); HEMATOCRIT 33 % (40-54); LYMPHOCYTES # (AUTO) 1.7 X 10^3 (1.0-4.0); LYMPHOCYTES % (AUTO) 25 % (12-44); MEAN CORPUSCULAR HEMOGLOBIN 30 PG (25-34); MEAN CORPUSCULAR HGB CONC 33 G/DL (32-36); MEAN CORPUSCULAR VOLUME 89 FL (80-99); MONOCYTES # (AUTO) 1.8 X 10^3 (0.0-1.0); MONOCYTES % (AUTO) 27 % (0-12); NEUTROPHILS # (AUTO) 3.3 X 10^3 (1.8-7.8); NEUTROPHILS % (AUTO) 48 % (42-75); PLATELET COUNT 70 10^3/uL (130-400); RED CELL DISTRIBUTION WIDTH 22.7 % (10.0-14.5); WHITE BLOOD COUNT 6.9 10^3/uL (4.3-11.0)
[2019-11-20 09:41] LABS: BUN/CREATININE RATIO 18; CARBON DIOXIDE 22 MMOL/L (21-32); CHLORIDE 105 MMOL/L (98-107); CREATININE SERUM 0.68 MG/DL (0.60-1.30); GFR ESTIMATED > 60; GLUCOSE 91 MG/DL (70-105); POTASSIUM 4.3 MMOL/L (3.6-5.0); SODIUM 135 MMOL/L (135-145)
[2019-11-26 10:13] LABS: HEMATOCRIT 32 % (40-54); HEMOGLOBIN 10.5 G/DL (13.3-17.7); MEAN CORPUSCULAR HEMOGLOBIN 29 PG (25-34); MEAN CORPUSCULAR HGB CONC 33 G/DL (32-36); MEAN CORPUSCULAR VOLUME 89 FL (80-99); RED CELL DISTRIBUTION WIDTH 21.1 % (10.0-14.5)
[2019-11-26 10:14] LABS: BASOPHILS % (AUTO) 1 % (0-10); EOSINOPHILS % (AUTO) 0 % (0-10); LYMPHOCYTES % (AUTO) 53 % (12-44); MONOCYTES % (AUTO) 6 % (0-12); NEUTROPHILS % (AUTO) 39 % (42-75); PLATELET COUNT 60 10^3/uL (130-400)
[2019-11-26 10:15] LABS: LYMPHOCYTES # (AUTO) 2.1 X 10^3 (1.0-4.0); MONOCYTES # (AUTO) 0.2 X 10^3 (0.0-1.0); NEUTROPHILS # (AUTO) 1.6 X 10^3 (1.8-7.8)
[2019-11-26 11:12] LABS: CHLORIDE 102 MMOL/L (98-107); POTASSIUM 4.4 MMOL/L (3.6-5.0); SODIUM 137 MMOL/L (135-145)
[2019-11-26 11:13] LABS: BUN/CREATININE RATIO 18; CALCIUM 9.4 MG/DL (8.5-10.1); CARBON DIOXIDE 24 MMOL/L (21-32); CREATININE SERUM 0.74 MG/DL (0.60-1.30); GFR ESTIMATED > 60; GLUCOSE 100 MG/DL (70-105)
[2019-12-03 11:06] LABS: BASOPHILS % (AUTO) 0 % (0-10); EOSINOPHILS # (AUTO) 0.1 10^3/uL (0.0-0.3); EOSINOPHILS % (AUTO) 1 % (0-10); HEMATOCRIT 32 % (40-54); HEMOGLOBIN 10.7 G/DL (13.3-17.7); LYMPHOCYTES % (AUTO) 26 % (12-44); MEAN CORPUSCULAR HGB CONC 33 G/DL (32-36); MEAN CORPUSCULAR VOLUME 88 FL (80-99); MONOCYTES # (AUTO) 1.7 X 10^3 (0.0-1.0); MONOCYTES % (AUTO) 21 % (0-12); NEUTROPHILS # (AUTO) 4.1 X 10^3 (1.8-7.8); NEUTROPHILS % (AUTO) 52 % (42-75); PLATELET COUNT 52 10^3/uL (130-400); RED CELL DISTRIBUTION WIDTH 22.2 % (10.0-14.5); WHITE BLOOD COUNT 7.8 10^3/uL (4.3-11.0)
[2019-12-03 11:07] LABS: MEAN CORPUSCULAR HEMOGLOBIN 29 PG (25-34)
[2019-12-03 11:30] LABS: ALANINE AMINOTRANSFERASE 13 U/L (0-55); ALBUMIN 3.6 GM/DL (3.2-4.5); ALKALINE PHOSPHATASE 59 U/L (40-136); BILIRUBIN,TOTAL 0.3 MG/DL (0.1-1.0); BUN/CREATININE RATIO 17; CALCIUM 9.1 MG/DL (8.5-10.1); CARBON DIOXIDE 21 MMOL/L (21-32); CHLORIDE 104 MMOL/L (98-107); CREATININE SERUM 0.72 MG/DL (0.60-1.30); GFR ESTIMATED > 60; GLUCOSE 101 MG/DL (70-105); POTASSIUM 4.3 MMOL/L (3.6-5.0); SODIUM 134 MMOL/L (135-145); TOTAL PROTEIN 6.2 GM/DL (6.4-8.2)
[2019-12-17 09:26] LABS: BASOPHILS # (AUTO) 0.1 10^3/uL (0.0-0.1); BASOPHILS % (AUTO) 1 % (0-10); EOSINOPHILS # (AUTO) 0.1 10^3/uL (0.0-0.3); EOSINOPHILS % (AUTO) 1 % (0-10); HEMATOCRIT 35 % (40-54); HEMOGLOBIN 11.8 G/DL (13.3-17.7); LYMPHOCYTES # (AUTO) 1.9 X 10^3 (1.0-4.0); LYMPHOCYTES % (AUTO) 19 % (12-44); MEAN CORPUSCULAR HEMOGLOBIN 30 PG (25-34); MEAN CORPUSCULAR HGB CONC 34 G/DL (32-36); MEAN CORPUSCULAR VOLUME 87 FL (80-99); MONOCYTES # (AUTO) 1.8 X 10^3 (0.0-1.0); MONOCYTES % (AUTO) 18 % (0-12); NEUTROPHILS # (AUTO) 6.3 X 10^3 (1.8-7.8); NEUTROPHILS % (AUTO) 62 % (42-75); PLATELET COUNT 93 10^3/uL (130-400); RED CELL DISTRIBUTION WIDTH 21.4 % (10.0-14.5); WHITE BLOOD COUNT 10.1 10^3/uL (4.3-11.0)
[2019-12-17 09:41] LABS: ALANINE AMINOTRANSFERASE 16 U/L (0-55); ALBUMIN 3.8 GM/DL (3.2-4.5); ALKALINE PHOSPHATASE 70 U/L (40-136); BILIRUBIN,TOTAL 0.4 MG/DL (0.1-1.0); BUN/CREATININE RATIO 21; CALCIUM 9.4 MG/DL (8.5-10.1); CARBON DIOXIDE 22 MMOL/L (21-32); CHLORIDE 101 MMOL/L (98-107); CREATININE SERUM 0.71 MG/DL (0.60-1.30); GFR ESTIMATED > 60; GLUCOSE 85 MG/DL (70-105); POTASSIUM 4.3 MMOL/L (3.6-5.0); SODIUM 132 MMOL/L (135-145); TOTAL PROTEIN 6.6 GM/DL (6.4-8.2)
[~2020-01-07] VITALS: Ht 172.7 cm; Wt 54.4 kg
[~2020-01-07 08:22] MED LIST changes: -CATHETER FLUSH 10 ML SYR IV PRN; +GEMCITABINE HCL IV SCH; -HOLD METFORMIN - RECEIVED CONTRAST 20 ML VIAL IV SCH; -IOHEXOL 350 MG/ML 100 ML (OMNIPAQUE 350) VIAL IV ONE; -NS 100 ML (IVPB) BAG IV ONE; +NS IV 1000 ML (CANCER CTR) IV SCH; +NS IV SCH; +PACLitaxel PROTEIN 150 MG in EMPTY IV BAG (PVC) CANCER CTR 1 EA IV SCH; +PACLitaxel PROTEIN 160 MG in EMPTY IV BAG (PVC) CANCER CTR 1 EA IV SCH; +PEMBROLIZUMAB 200 MG in NS (IVPB) CANCER CENTER 50 ML IV SCH
[2020-01-08 06:19] LABS: HEMATOCRIT 32 % (40-54); HEMOGLOBIN 10.8 G/DL (13.3-17.7); MEAN CORPUSCULAR HEMOGLOBIN 29 PG (25-34); MEAN CORPUSCULAR HGB CONC 34 G/DL (32-36); MEAN CORPUSCULAR VOLUME 86 FL (80-99); PLATELET COUNT 69 10^3/uL (130-400); RED CELL DISTRIBUTION WIDTH 20.8 % (10.0-14.5); WHITE BLOOD COUNT 8.5 10^3/uL (4.3-11.0)
[2020-01-08 06:20] LABS: BASOPHILS % (AUTO) 1 % (0-10); EOSINOPHILS % (AUTO) 1 % (0-10); LYMPHOCYTES # (AUTO) 2.2 X 10^3 (1.0-4.0); LYMPHOCYTES % (AUTO) 26 % (12-44); MONOCYTES # (AUTO) 1.7 X 10^3 (0.0-1.0); MONOCYTES % (AUTO) 21 % (0-12); NEUTROPHILS # (AUTO) 4.4 X 10^3 (1.8-7.8); NEUTROPHILS % (AUTO) 52 % (42-75)
[2020-01-08 06:21] LABS: BASOPHILS # (AUTO) 0.1 10^3/uL (0.0-0.1); EOSINOPHILS # (AUTO) 0.1 10^3/uL (0.0-0.3)
[2020-01-08 06:23] LABS: SMEAR SCAN COMMENT YES
[2020-01-08 06:25] LABS: ALANINE AMINOTRANSFERASE 14 U/L (0-55); ALBUMIN 3.6 GM/DL (3.2-4.5); ALKALINE PHOSPHATASE 51 U/L (40-136); BILIRUBIN,TOTAL 0.4 MG/DL (0.1-1.0); BUN/CREATININE RATIO 19; CALCIUM 8.9 MG/DL (8.5-10.1); CARBON DIOXIDE 24 MMOL/L (21-32); CHLORIDE 103 MMOL/L (98-107); CREATININE SERUM 0.68 MG/DL (0.60-1.30); GFR ESTIMATED > 60; GLUCOSE 88 MG/DL (70-105); POTASSIUM 4.4 MMOL/L (3.6-5.0); SODIUM 133 MMOL/L (135-145); TOTAL PROTEIN 6.4 GM/DL (6.4-8.2)
== END 2020-01-20 | disposition home or self-care (01) ==
LOC: ONC 08:22
PROVIDERS: ATTEND Internal Medicine Hematology & Oncology
DX: C25.2 Malignant neoplasm of tail of pancreas (principal); K22.70 Barrett's esophagus without dysplasia; D69.6 Thrombocytopenia, unspecified; D64.9 Anemia, unspecified; R92.8 Other abnormal and inconclusive findings on diagnostic imaging of breast; Z72.0 Tobacco use
CPT/HCPCS: 36415; 36591; 80048; 80053; 84443; 85025; 86301; 96375; 96413; 96417; 99213

== ENCOUNTER → 2020-03-08 | Outpatient (CLI) | payer OTHER ==
[~2020-03-08] MED LIST changes: +CATHETER FLUSH 10 ML SYR IV PRN; -GEMCITABINE HCL IV SCH; +HOLD METFORMIN - RECEIVED CONTRAST 20 ML VIAL IV SCH; +IOHEXOL 350 MG/ML 100 ML (OMNIPAQUE 350) VIAL IV ONE; +NS 100 ML (IVPB) BAG IV ONE; -NS IV 1000 ML (CANCER CTR) IV SCH; -NS IV SCH; -PACLitaxel PROTEIN 150 MG in EMPTY IV BAG (PVC) CANCER CTR 1 EA IV SCH; -PACLitaxel PROTEIN 160 MG in EMPTY IV BAG (PVC) CANCER CTR 1 EA IV SCH; -PEMBROLIZUMAB 200 MG in NS (IVPB) CANCER CENTER 50 ML IV SCH
--- NOTE | 2020-03-08 10:51 | Diagnostic Imaging Report ---
EXAMINATION: CT Chest with intravenous contrast, CT Abdomen and Pelvis without and with intravenous contrast. TECHNIQUE: Pre and post intravenous contrast axial imaging of the abdomen and pelvis and post contrast axial imaging of the chest were performed. All CT scans use one or more of the following dose optimizing techniques: automated exposure control, MA and/or KvP adjustment based on a patient size and exam type, or iterative reconstruction. HISTORY: Pancreatic cancer. COMPARISON: 12/04/2019 FINDINGS: There are new left lower lobe peribronchial vascular and tree-in-bud nodules suggestive of aspiration. A few other small pulmonary nodules in the right lung are stable. No pleural effusion. No pneumothorax. Left upper lobe nodules decreased in size measuring 9 x 9 mm, previously 14 x 13 mm. There is no axillary or supraclavicular lymphadenopathy. There is no mediastinal lymphadenopathy. Heart size is normal. There are mild coronary artery calcifications. No pericardial effusion. Aorta is normal in caliber. Previously seen liver lesions have mostly resolved. A segment seven lesion measures approximately 4 mm, previously 12 mm. The other lesions are not identifiable. There is no biliary ductal dilation. Gallbladder is normal. Pancreatic tail mass has decreased in size and is no longer identifiable as a discrete mass. Spleen is normal. Adrenal glands are normal. Simple cysts are seen in the kidneys. No suspicious renal lesions. There is no hydronephrosis. Urinary bladder is normal. Visualized bowel is normal in caliber without obstruction or inflammation. No free fluid or air. No abdominal or pelvic lymphadenopathy. Abdominal aorta is heavily atherosclerotic without aneurysm. There are no suspicious osseous lesions. IMPRESSION: 1. Significant decrease in size lung nodule in the left apex, liver metastases and pancreatic tail mass. Dictated by: Dictated on workstation # [id number]
== END ==
LOC: RAD 09:45
PROVIDERS: ATTEND Internal Medicine Hematology & Oncology
DX: C25.2 Malignant neoplasm of tail of pancreas (principal); C78.7 Secondary malignant neoplasm of liver and intrahepatic bile duct; R91.1 Solitary pulmonary nodule
CPT/HCPCS: 71260; 74178

== ENCOUNTER 2020-04-21 08:55 | Outpatient (RCR) | payer OTHER ==
[2020-01-29 10:25] LABS: BASOPHILS # (AUTO) 0.1 10^3/uL (0.0-0.1); BASOPHILS % (AUTO) 1 % (0-10); EOSINOPHILS # (AUTO) 0.2 10^3/uL (0.0-0.3); EOSINOPHILS % (AUTO) 2 % (0-10); HEMATOCRIT 35 % (40-54); HEMOGLOBIN 11.9 G/DL (13.3-17.7); LYMPHOCYTES # (AUTO) 2.1 X 10^3 (1.0-4.0); LYMPHOCYTES % (AUTO) 21 % (12-44); MEAN CORPUSCULAR HEMOGLOBIN 29 PG (25-34); MEAN CORPUSCULAR HGB CONC 34 G/DL (32-36); MEAN CORPUSCULAR VOLUME 86 FL (80-99); MONOCYTES % (AUTO) 20 % (0-12); NEUTROPHILS # (AUTO) 5.5 X 10^3 (1.8-7.8); NEUTROPHILS % (AUTO) 56 % (42-75); PLATELET COUNT 43 10^3/uL (130-400); WHITE BLOOD COUNT 9.7 10^3/uL (4.3-11.0)
[2020-01-29 10:45] LABS: ALANINE AMINOTRANSFERASE 13 U/L (0-55); ALBUMIN 3.8 GM/DL (3.2-4.5); ALKALINE PHOSPHATASE 62 U/L (40-136); BILIRUBIN,TOTAL 0.4 MG/DL (0.1-1.0); BUN/CREATININE RATIO 17; CALCIUM 8.9 MG/DL (8.5-10.1); CARBON DIOXIDE 26 MMOL/L (21-32); CHLORIDE 105 MMOL/L (98-107); CREATININE SERUM 0.75 MG/DL (0.60-1.30); GFR ESTIMATED > 60; GLUCOSE 128 MG/DL (70-105); SODIUM 137 MMOL/L (135-145); TOTAL PROTEIN 6.7 GM/DL (6.4-8.2)
[2020-02-18 10:27] LABS: MEAN CORPUSCULAR VOLUME 86 fL (80-99)
[2020-02-18 10:29] LABS: BASOPHILS # (AUTO) 0.1 10^3/uL (0.0-0.1); BASOPHILS % (AUTO) 1 % (0-10); EOSINOPHILS # (AUTO) 0.2 10^3/uL (0.0-0.3); EOSINOPHILS % (AUTO) 2 % (0-10); HEMATOCRIT 35 % (40-54); HEMOGLOBIN 11.4 g/dL (13.3-17.7); LYMPHOCYTES # (AUTO) 2.7 10^3/uL (1.0-4.0); LYMPHOCYTES % (AUTO) 23 % (12-44); MEAN CORPUSCULAR HEMOGLOBIN 28 pg (25-34); MEAN CORPUSCULAR HGB CONC 33 g/dL (32-36); MONOCYTES # (AUTO) 2.1 10^3/uL (0.0-1.0); MONOCYTES % (AUTO) 18 % (0-12); NEUTROPHILS # (AUTO) 6.4 10^3/uL (1.8-7.8); NEUTROPHILS % (AUTO) 55 % (42-75); PLATELET COUNT 60 10^3/uL (130-400); WHITE BLOOD COUNT 11.7 10^3/uL (4.3-11.0)
[2020-02-18 10:55] LABS: ALANINE AMINOTRANSFERASE 14 U/L (0-55); ALBUMIN 3.7 GM/DL (3.2-4.5); ALKALINE PHOSPHATASE 63 U/L (40-136); BILIRUBIN,TOTAL 0.4 MG/DL (0.1-1.0); BUN/CREATININE RATIO 16; CALCIUM 8.6 MG/DL (8.5-10.1); CARBON DIOXIDE 20 MMOL/L (21-32); CHLORIDE 105 MMOL/L (98-107); CREATININE SERUM 0.79 MG/DL (0.60-1.30); GFR ESTIMATED > 60; GLUCOSE 89 MG/DL (70-105); POTASSIUM 4.4 MMOL/L (3.6-5.0); SODIUM 136 MMOL/L (135-145); TOTAL PROTEIN 6.6 GM/DL (6.4-8.2)
[2020-03-08 09:27] LABS: HEMOGLOBIN 11.4 g/dL (13.3-17.7)
[2020-03-08 09:28] LABS: BASOPHILS # (AUTO) 0.2 10^3/uL (0.0-0.1); BASOPHILS % (AUTO) 1 % (0-10); EOSINOPHILS # (AUTO) 0.1 10^3/uL (0.0-0.3); EOSINOPHILS % (AUTO) 1 % (0-10); HEMATOCRIT 35 % (40-54); LYMPHOCYTES # (AUTO) 2.3 10^3/uL (1.0-4.0); LYMPHOCYTES % (AUTO) 15 % (12-44); MEAN CORPUSCULAR HEMOGLOBIN 28 pg (25-34); MEAN CORPUSCULAR HGB CONC 33 g/dL (32-36); MEAN CORPUSCULAR VOLUME 84 fL (80-99); MONOCYTES # (AUTO) 2.2 10^3/uL (0.0-1.0); MONOCYTES % (AUTO) 15 % (0-12); NEUTROPHILS # (AUTO) 9.8 10^3/uL (1.8-7.8); NEUTROPHILS % (AUTO) 65 % (42-75); PLATELET COUNT 123 10^3/uL (130-400); WHITE BLOOD COUNT 15.1 10^3/uL (4.3-11.0)
[2020-03-08 09:53] LABS: ALANINE AMINOTRANSFERASE 18 U/L (0-55); ALBUMIN 3.4 GM/DL (3.2-4.5); ALKALINE PHOSPHATASE 58 U/L (40-136); BILIRUBIN,TOTAL 0.4 MG/DL (0.1-1.0); BUN/CREATININE RATIO 16; CALCIUM 8.8 MG/DL (8.5-10.1); CARBON DIOXIDE 21 MMOL/L (21-32); CHLORIDE 105 MMOL/L (98-107); CREATININE SERUM 0.73 MG/DL (0.60-1.30); GFR ESTIMATED > 60; GLUCOSE 97 MG/DL (70-105); POTASSIUM 4.3 MMOL/L (3.6-5.0); SODIUM 137 MMOL/L (135-145); TOTAL PROTEIN 6.8 GM/DL (6.4-8.2)
[2020-03-30 10:39] LABS: EOSINOPHILS # (AUTO) 0.1 10^3/uL (0.0-0.3); EOSINOPHILS % (AUTO) 1 % (0-10)
[2020-03-30 10:41] LABS: BASOPHILS # (AUTO) 0.1 10^3/uL (0.0-0.1); BASOPHILS % (AUTO) 1 % (0-10); HEMATOCRIT 34 % (40-54); LYMPHOCYTES # (AUTO) 2.6 10^3/uL (1.0-4.0); LYMPHOCYTES % (AUTO) 25 % (12-44); MEAN CORPUSCULAR HEMOGLOBIN 27 pg (25-34); MEAN CORPUSCULAR HGB CONC 32 g/dL (32-36); MEAN CORPUSCULAR VOLUME 85 fL (80-99); MONOCYTES # (AUTO) 1.4 10^3/uL (0.0-1.0); MONOCYTES % (AUTO) 14 % (0-12); NEUTROPHILS # (AUTO) 5.8 10^3/uL (1.8-7.8); NEUTROPHILS % (AUTO) 57 % (42-75); PLATELET COUNT 89 10^3/uL (130-400); WHITE BLOOD COUNT 10.2 10^3/uL (4.3-11.0)
[2020-03-30 10:49] LABS: SMEAR SCAN COMMENT YES
[2020-03-30 11:05] LABS: ALANINE AMINOTRANSFERASE 16 U/L (0-55); ALBUMIN 3.8 GM/DL (3.2-4.5); ALKALINE PHOSPHATASE 61 U/L (40-136); BILIRUBIN,TOTAL 0.5 MG/DL (0.1-1.0); BUN/CREATININE RATIO 19; CALCIUM 8.9 MG/DL (8.5-10.1); CARBON DIOXIDE 22 MMOL/L (21-32); CHLORIDE 103 MMOL/L (98-107); GFR ESTIMATED > 60; GLUCOSE 87 MG/DL (70-105); POTASSIUM 4.4 MMOL/L (3.6-5.0); SODIUM 134 MMOL/L (135-145); TOTAL PROTEIN 6.9 GM/DL (6.4-8.2)
[~2020-04-21 08:55] MED LIST changes: -CATHETER FLUSH 10 ML SYR IV PRN; -HOLD METFORMIN - RECEIVED CONTRAST 20 ML VIAL IV SCH; -IOHEXOL 350 MG/ML 100 ML (OMNIPAQUE 350) VIAL IV ONE; -NS 100 ML (IVPB) BAG IV ONE; +NS IV 1000 ML (CANCER CTR) IV SCH; +PEMBROLIZUMAB 200 MG in NS (IVPB) CANCER CENTER 50 ML IV SCH
[2020-04-21 09:20] LABS: EOSINOPHILS # (AUTO) 0.1 10^3/uL (0.0-0.3); EOSINOPHILS % (AUTO) 1 % (0-10); HEMOGLOBIN 10.9 g/dL (13.3-17.7); MEAN CORPUSCULAR HEMOGLOBIN 27 pg (25-34)
[2020-04-21 09:22] LABS: BASOPHILS # (AUTO) 0.1 10^3/uL (0.0-0.1); BASOPHILS % (AUTO) 1 % (0-10); HEMATOCRIT 34 % (40-54); LYMPHOCYTES # (AUTO) 2.4 10^3/uL (1.0-4.0); LYMPHOCYTES % (AUTO) 21 % (12-44); MEAN CORPUSCULAR HGB CONC 32 g/dL (32-36); MEAN CORPUSCULAR VOLUME 86 fL (80-99); MONOCYTES # (AUTO) 2.1 10^3/uL (0.0-1.0); MONOCYTES % (AUTO) 18 % (0-12); NEUTROPHILS # (AUTO) 6.5 10^3/uL (1.8-7.8); NEUTROPHILS % (AUTO) 57 % (42-75); PLATELET COUNT 81 10^3/uL (130-400); WHITE BLOOD COUNT 11.6 10^3/uL (4.3-11.0)
[2020-04-21 09:37] LABS: ALANINE AMINOTRANSFERASE 15 U/L (0-55); ALBUMIN 3.7 GM/DL (3.2-4.5); ALKALINE PHOSPHATASE 60 U/L (40-136); BILIRUBIN,TOTAL 0.4 MG/DL (0.1-1.0); BUN/CREATININE RATIO 17; CALCIUM 8.7 MG/DL (8.5-10.1); CARBON DIOXIDE 21 MMOL/L (21-32); CHLORIDE 107 MMOL/L (98-107); CREATININE SERUM 0.77 MG/DL (0.60-1.30); GFR ESTIMATED > 60; GLUCOSE 97 MG/DL (70-105); POTASSIUM 4.2 MMOL/L (3.6-5.0); SODIUM 137 MMOL/L (135-145); TOTAL PROTEIN 6.7 GM/DL (6.4-8.2)
== END 2020-04-28 | disposition home or self-care (01) ==
LOC: ONC 08:55
PROVIDERS: ATTEND Internal Medicine Hematology & Oncology
DX: Z51.11 Encounter for antineoplastic chemotherapy (principal); C25.2 Malignant neoplasm of tail of pancreas; C78.7 Secondary malignant neoplasm of liver and intrahepatic bile duct; D69.6 Thrombocytopenia, unspecified; D61.818 Other pancytopenia; R91.8 Other nonspecific abnormal finding of lung field; Z90.81 Acquired absence of spleen; Z90.410 Acquired total absence of pancreas
CPT/HCPCS: 80053; 84443; 85025; 86301; 96413; G0463; 36591

== ENCOUNTER 2020-05-12 09:51 | Outpatient (RCR) | payer OTHER ==
[~2020-05-12 09:51] MED LIST changes: -NS IV 1000 ML (CANCER CTR) IV SCH; -PEMBROLIZUMAB 200 MG in NS (IVPB) CANCER CENTER 50 ML IV SCH
[2020-05-12 10:19] LABS: HEMOGLOBIN 11.3 g/dL (13.3-17.7); MEAN CORPUSCULAR VOLUME 84 fL (80-99)
[2020-05-12 10:21] LABS: BASOPHILS # (AUTO) 0.1 10^3/uL (0.0-0.1); BASOPHILS % (AUTO) 1 % (0-10); EOSINOPHILS # (AUTO) 0.1 10^3/uL (0.0-0.3); EOSINOPHILS % (AUTO) 1 % (0-10); HEMATOCRIT 35 % (40-54); LYMPHOCYTES # (AUTO) 2.3 10^3/uL (1.0-4.0); LYMPHOCYTES % (AUTO) 19 % (12-44); MEAN CORPUSCULAR HEMOGLOBIN 28 pg (25-34); MEAN CORPUSCULAR HGB CONC 33 g/dL (32-36); MONOCYTES # (AUTO) 1.8 10^3/uL (0.0-1.0); MONOCYTES % (AUTO) 16 % (0-12); NEUTROPHILS # (AUTO) 7.1 10^3/uL (1.8-7.8); NEUTROPHILS % (AUTO) 61 % (42-75); PLATELET COUNT 72 10^3/uL (130-400); WHITE BLOOD COUNT 11.7 10^3/uL (4.3-11.0)
[2020-05-12] MEDS ORDERED: NS IV 1000 ML (CANCER CTR) IV SCH (10:43)
[2020-05-12] MEDS ORDERED: PEMBROLIZUMAB 200 MG in NS (IVPB) CANCER CENTER 50 ML IV SCH (10:43)
[2020-05-12 10:46] LABS: ALANINE AMINOTRANSFERASE 15 U/L (0-55); ALBUMIN 3.9 GM/DL (3.2-4.5); ALKALINE PHOSPHATASE 68 U/L (40-136); BILIRUBIN,TOTAL 0.5 MG/DL (0.1-1.0); BUN/CREATININE RATIO 16; CARBON DIOXIDE 22 MMOL/L (21-32); CHLORIDE 105 MMOL/L (98-107); CREATININE SERUM 0.76 MG/DL (0.60-1.30); GFR ESTIMATED > 60; GLUCOSE 89 MG/DL (70-105); POTASSIUM 4.3 MMOL/L (3.6-5.0); SODIUM 136 MMOL/L (135-145); TOTAL PROTEIN 6.8 GM/DL (6.4-8.2)
== END 2020-05-27 16:31 | disposition home or self-care (01) ==
LOC: ONC 09:51
PROVIDERS: ATTEND Internal Medicine Hematology & Oncology
DX: Z51.11 Encounter for antineoplastic chemotherapy (principal); C25.2 Malignant neoplasm of tail of pancreas; C78.7 Secondary malignant neoplasm of liver and intrahepatic bile duct; D69.6 Thrombocytopenia, unspecified; D61.818 Other pancytopenia; R91.8 Other nonspecific abnormal finding of lung field; Z90.81 Acquired absence of spleen; Z90.410 Acquired total absence of pancreas
CPT/HCPCS: 80053; 84443; 85025; 86301; 96413; G0463; 36591

== ENCOUNTER → 2020-06-17 | Outpatient (CLI) | payer OTHER ==
[~2020-06-17] MED LIST changes: +BARIUM SUSPENSION 2.1% (VANILLA SILQ) 450 ML PO ONE; +CATHETER FLUSH 10 ML SYR IV PRN; +HOLD METFORMIN - RECEIVED CONTRAST 20 ML VIAL IV SCH; +IOHEXOL 350 MG/ML 100 ML (OMNIPAQUE 350) VIAL IV ONE; +NS 100 ML (IVPB) BAG IV ONE
--- NOTE | 2020-06-17 11:18 | Diagnostic Imaging Report ---
PROCEDURE: CT chest with contrast, CT abdomen and pelvis with and without contrast. TECHNIQUE: Pre and post intravenous contrast axial imaging of the abdomen and pelvis and post contrast axial imaging of the chest were performed. Auto Exposure Controls were utilized during the CT exam to meet ALARA standards for radiation dose reduction. INDICATION: Pancreatic carcinoma, followup. Correlation is made to prior CT from 03/08/2020. CT CHEST: A right chest wall port has tip in the SVC. No axillary lymphadenopathy is detected. No mediastinal or hilar lymphadenopathy is detected. No pericardial or pleural fluid is identified. Parenchymal evaluation does show centrilobular emphysematous changes. Slight irregular density in the medial left upper lobe, image 25 is 6 mm compare with 9 mm on prior. Ill-defined opacity and more inferiorly in the left upper lobe, image 43 is stable at 6 mm. Subpleural nodules in the right lower lobe, image 73 appear stable. There is a tiny nodule in the inferior left upper lobe, image 76 which is stable. The tree-in-bud infiltrates left lower lobe previously noted have improved but do partially remain. No new infiltrates are seen. IMPRESSION: 1. No evidence of thoracic lymphadenopathy. 2. There has been some decrease in size of pulmonary nodule since exam from 03/08/2020. Left basilar infiltrate has improved as well. No new abnormality is detected. CT ABDOMEN AND PELVIS: Vague peripheral based low densities right lobe of the liver appear stable. No discrete liver mass is detected. Gallbladder is unremarkable. There is no biliary ductal dilatation. Pancreas appears stable. No discrete pancreatic mass is identified on today's study. The spleen is unremarkable. No adrenal mass is detected. Kidneys are unremarkable. Aorta is calcified but not aneurysmal. No central retroperitoneal or mesenteric lymphadenopathy is seen. There is a large amount of stool throughout the colon. Bowel loops are normal caliber. There is no obstruction. No free fluid or fluid collection is seen. Bladder and prostate are unremarkable. The bony structures are unremarkable. IMPRESSION: Stable CT abdomen and pelvis since exam from 03/08/2020. No definite abdominal or pelvic lymphadenopathy is seen. No discrete mass is identified. The liver appears stable. Dictated by: Dictated on workstation # [id number]
== END ==
LOC: RAD 09:51
PROVIDERS: ATTEND Nurse Practitioner Adult Health
DX: C25.2 Malignant neoplasm of tail of pancreas (principal); R91.1 Solitary pulmonary nodule
CPT/HCPCS: 71260; 74178

== ENCOUNTER 2020-08-25 08:46 | Outpatient (RCR) | payer OTHER ==
[2020-06-02 08:58] LABS: BASOPHILS # (AUTO) 0.1 10^3/uL (0.0-0.1); BASOPHILS % (AUTO) 1 % (0-10); EOSINOPHILS # (AUTO) 0.2 10^3/uL (0.0-0.3); EOSINOPHILS % (AUTO) 2 % (0-10); HEMATOCRIT 37 % (40-54); HEMOGLOBIN 11.8 g/dL (13.3-17.7); LYMPHOCYTES # (AUTO) 2.5 10^3/uL (1.0-4.0); LYMPHOCYTES % (AUTO) 25 % (12-44); MEAN CORPUSCULAR HEMOGLOBIN 27 pg (25-34); MEAN CORPUSCULAR HGB CONC 32 g/dL (32-36); MEAN CORPUSCULAR VOLUME 86 fL (80-99); MONOCYTES # (AUTO) 1.5 10^3/uL (0.0-1.0); MONOCYTES % (AUTO) 15 % (0-12); NEUTROPHILS # (AUTO) 5.6 10^3/uL (1.8-7.8); NEUTROPHILS % (AUTO) 55 % (42-75); PLATELET COUNT 54 10^3/uL (130-400); WHITE BLOOD COUNT 10.1 10^3/uL (4.3-11.0)
[2020-06-02 09:15] LABS: ALANINE AMINOTRANSFERASE 17 U/L (0-55); ALBUMIN 3.9 GM/DL (3.2-4.5); ALKALINE PHOSPHATASE 65 U/L (40-136); BILIRUBIN,TOTAL 0.4 MG/DL (0.1-1.0); BUN/CREATININE RATIO 16; CALCIUM 9.1 MG/DL (8.5-10.1); CARBON DIOXIDE 24 MMOL/L (21-32); CHLORIDE 105 MMOL/L (98-107); GFR ESTIMATED > 60; GLUCOSE 90 MG/DL (70-105); POTASSIUM 4.3 MMOL/L (3.6-5.0); SODIUM 137 MMOL/L (135-145); TOTAL PROTEIN 6.7 GM/DL (6.4-8.2)
[2020-06-23 09:10] LABS: EOSINOPHILS # (AUTO) 0.1 10^3/uL (0.0-0.3); EOSINOPHILS % (AUTO) 1 % (0-10); HEMATOCRIT 36 % (40-54)
[2020-06-23 09:12] LABS: BASOPHILS # (AUTO) 0.1 10^3/uL (0.0-0.1); BASOPHILS % (AUTO) 1 % (0-10); HEMOGLOBIN 11.9 g/dL (13.3-17.7); LYMPHOCYTES # (AUTO) 2.3 10^3/uL (1.0-4.0); LYMPHOCYTES % (AUTO) 19 % (12-44); MEAN CORPUSCULAR HEMOGLOBIN 28 pg (25-34); MEAN CORPUSCULAR HGB CONC 33 g/dL (32-36); MEAN CORPUSCULAR VOLUME 84 fL (80-99); MONOCYTES # (AUTO) 1.9 10^3/uL (0.0-1.0); MONOCYTES % (AUTO) 16 % (0-12); NEUTROPHILS # (AUTO) 7.2 10^3/uL (1.8-7.8); NEUTROPHILS % (AUTO) 61 % (42-75); PLATELET COUNT 75 10^3/uL (130-400); WHITE BLOOD COUNT 11.9 10^3/uL (4.3-11.0)
[2020-06-23 09:30] LABS: ALANINE AMINOTRANSFERASE 11 U/L (0-55); ALBUMIN 3.3 GM/DL (3.2-4.5); ALKALINE PHOSPHATASE 58 U/L (40-136); BILIRUBIN,TOTAL 0.3 MG/DL (0.1-1.0); BUN/CREATININE RATIO 18; CALCIUM 8.1 MG/DL (8.5-10.1); CARBON DIOXIDE 20 MMOL/L (21-32); CHLORIDE 110 MMOL/L (98-107); CREATININE SERUM 0.72 MG/DL (0.60-1.30); GFR ESTIMATED > 60; GLUCOSE 86 MG/DL (70-105); POTASSIUM 3.8 MMOL/L (3.6-5.0); SODIUM 138 MMOL/L (135-145)
[2020-08-04 08:59] LABS: LYMPHOCYTES % (AUTO) 19 % (12-44)
[2020-08-04 09:01] LABS: BASOPHILS # (AUTO) 0.1 10^3/uL (0.0-0.1); BASOPHILS % (AUTO) 1 % (0-10); EOSINOPHILS # (AUTO) 0.2 10^3/uL (0.0-0.3); EOSINOPHILS % (AUTO) 2 % (0-10); HEMATOCRIT 37 % (40-54); LYMPHOCYTES # (AUTO) 2.2 10^3/uL (1.0-4.0); MEAN CORPUSCULAR HEMOGLOBIN 27 pg (25-34); MEAN CORPUSCULAR HGB CONC 33 g/dL (32-36); MEAN CORPUSCULAR VOLUME 84 fL (80-99); MONOCYTES # (AUTO) 2.1 10^3/uL (0.0-1.0); MONOCYTES % (AUTO) 18 % (0-12); NEUTROPHILS # (AUTO) 6.9 10^3/uL (1.8-7.8); NEUTROPHILS % (AUTO) 58 % (42-75); PLATELET COUNT 75 10^3/uL (130-400); WHITE BLOOD COUNT 11.8 10^3/uL (4.3-11.0)
[2020-08-04 09:17] LABS: ALANINE AMINOTRANSFERASE 15 U/L (0-55); ALBUMIN 3.8 GM/DL (3.2-4.5); ALKALINE PHOSPHATASE 62 U/L (40-136); BILIRUBIN,TOTAL 0.5 MG/DL (0.1-1.0); BUN/CREATININE RATIO 17; CALCIUM 8.7 MG/DL (8.5-10.1); CARBON DIOXIDE 22 MMOL/L (21-32); CHLORIDE 106 MMOL/L (98-107); CREATININE SERUM 0.78 MG/DL (0.60-1.30); GFR ESTIMATED > 60; GLUCOSE 93 MG/DL (70-105); POTASSIUM 4.3 MMOL/L (3.6-5.0); SODIUM 137 MMOL/L (135-145); TOTAL PROTEIN 6.6 GM/DL (6.4-8.2)
[~2020-08-25 08:46] MED LIST changes: -BARIUM SUSPENSION 2.1% (VANILLA SILQ) 450 ML PO ONE; -CATHETER FLUSH 10 ML SYR IV PRN; -HOLD METFORMIN - RECEIVED CONTRAST 20 ML VIAL IV SCH; -IOHEXOL 350 MG/ML 100 ML (OMNIPAQUE 350) VIAL IV ONE; -NS 100 ML (IVPB) BAG IV ONE; +NS IV 1000 ML (CANCER CTR) IV SCH; +PEMBROLIZUMAB 200 MG in NS (IVPB) CANCER CENTER 50 ML IV SCH
== END 2020-08-31 | disposition home or self-care (01) ==
LOC: ONC 08:46
PROVIDERS: ATTEND Internal Medicine Hematology & Oncology
DX: Z51.11 Encounter for antineoplastic chemotherapy (principal); C25.2 Malignant neoplasm of tail of pancreas; C78.7 Secondary malignant neoplasm of liver and intrahepatic bile duct; D69.6 Thrombocytopenia, unspecified; D61.818 Other pancytopenia; J43.9 Emphysema, unspecified; R91.8 Other nonspecific abnormal finding of lung field; Z90.81 Acquired absence of spleen; Z90.410 Acquired total absence of pancreas; Z92.21 Personal history of antineoplastic chemotherapy
CPT/HCPCS: 36591; 80053; 84443; 85025; 86301; 96413

== ENCOUNTER 2020-09-20 16:39 | Inpatient (IN) | payer MEDICARE, OTHER ==
[~2020-09-20] VITALS: Ht 172.7 cm; Wt 48.2 kg
[~2020-09-20 16:39] MED LIST changes: -NS IV 1000 ML (CANCER CTR) IV SCH; -PEMBROLIZUMAB 200 MG in NS (IVPB) CANCER CENTER 50 ML IV SCH
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
[2020-09-20] MEDS ORDERED: RT-ALBUTEROL/IPRATROPIUM 3 ML (DUONEB) VIAL INH ONE (17:00)
[2020-09-20 17:13] LABS: BASOPHILS % (AUTO) 1 % (0-10); EOSINOPHILS % (AUTO) 1 % (0-10); HEMATOCRIT 40 % (40-54); HEMOGLOBIN 13.1 G/DL (13.3-17.7); LYMPHOCYTES % (AUTO) 12 % (12-44); MEAN CORPUSCULAR HEMOGLOBIN 27 PG (25-34); MEAN CORPUSCULAR HGB CONC 33 G/DL (32-36); MEAN CORPUSCULAR VOLUME 84 FL (80-99); MONOCYTES % (AUTO) 19 % (0-12); NEUTROPHILS % (AUTO) 64 % (42-75); PLATELET COUNT 63 10^3/uL (130-400); WHITE BLOOD COUNT 19.2 10^3/uL (4.3-11.0)
[2020-09-20 17:14] LABS: BASOPHILS # (AUTO) 0.2 10^3/uL (0.0-0.1); EOSINOPHILS # (AUTO) 0.1 10^3/uL (0.0-0.3); LYMPHOCYTES # (AUTO) 2.2 X 10^3 (1.0-4.0); MONOCYTES # (AUTO) 3.7 X 10^3 (0.0-1.0); NEUTROPHILS # (AUTO) 12.3 X 10^3 (1.8-7.8)
--- NOTE | 2020-09-20 17:23 | Diagnostic Imaging Report ---
INDICATION: Shortness of breath and hypoxia. TECHNIQUE: PA and lateral chest obtained at 05:08 p.m. and compared to 09/11/2019. FINDINGS: Port-A-Cath is unchanged. The heart is normal in size. There is marked hyperinflation, compatible with COPD. There is no new consolidation or pneumothorax or pleural fluid. There are calcified granuloma in the right base. IMPRESSION: COPD changes with no new infiltrate or pleural fluid. Dictated by: Dictated on workstation # [id number]
[2020-09-20 17:29] LABS: BAND NEUTROPHILS 5 %; BASOPHILS % (MANUAL) 0 %; EOSINOPHILS % (MANUAL) 1 %; LYMPHOCYTES % (MANUAL) 9 %; MONOCYTES % (MANUAL) 12 %; NEUTROPHILS % (MANUAL) 73 %
[2020-09-20] MEDS ORDERED: RT-ALBUTEROL SULF 2.5 MG/3 ML PRE-MIX VIAL INH ONE (17:30)
[2020-09-20 17:31] LABS: ACANTHOCYTES SLIGHT
[2020-09-20 17:33] LABS: ALANINE AMINOTRANSFERASE 14 U/L (0-55); ALBUMIN 4.1 GM/DL (3.2-4.5); ALKALINE PHOSPHATASE 83 U/L (40-136); BILIRUBIN,TOTAL 0.4 MG/DL (0.1-1.0); BUN/CREATININE RATIO 17; CALCIUM 9.3 MG/DL (8.5-10.1); CARBON DIOXIDE 24 MMOL/L (21-32); CHLORIDE 99 MMOL/L (98-107); CREATININE SERUM 0.71 MG/DL (0.60-1.30); GFR ESTIMATED > 60; GLUCOSE 110 MG/DL (70-105); MAGNESIUM 2.3 MG/DL (1.6-2.4); POTASSIUM 4.1 MMOL/L (3.6-5.0); SODIUM 133 MMOL/L (135-145); TOTAL PROTEIN 7.5 GM/DL (6.4-8.2)
[2020-09-20] MEDS ORDERED: IOHEXOL 350 MG/ML 150 ML (OMNIPAQUE 350) VIAL IV ONE (18:00)
[2020-09-20] MEDS ORDERED: CATHETER FLUSH 10 ML SYR IV PRN ×2 (18:00→23:15)
[2020-09-20] MEDS ORDERED: NS 100 ML (IVPB) BAG IV ONE (18:00)
[2020-09-20] MEDS ORDERED: HOLD METFORMIN - RECEIVED CONTRAST 20 ML VIAL IV SCH (18:00)
--- NOTE | 2020-09-20 18:28 | Diagnostic Imaging Report ---
PROCEDURE: CT angiography Chest. TECHNIQUE: After intravenous administration of contrast, thin section axial CT angiography of the chest was performed. 3D MIP reconstructions were made. All CT scans use one or more of the following dose optimizing techniques: automated exposure control, MA and/or KvP adjustment based on a patient size and exam type, or iterative reconstruction. INDICATION: Shortness of breath. History of lung cancer. COMPARISON: CT chest of 06/17/2020. FINDINGS: Vasculature: No pulmonary emboli. No CT evidence of pulmonary hypertension or right ventricular strain. Thoracic aorta is normal in caliber. No aortic dissection or pseudoaneurysm. Heart and mediastinum: Thyroid is not visualized and may be hypoplastic or surgically absent. Stable right IJ Port-A-Cath. No supraclavicular, axillary, or intra-thoracic lymphadenopathy. The heart is normal in size without pericardial effusion. Pleura: No pleural effusion or pneumothorax. Lungs and airway: Severe centrilobular emphysema is again noted. The left upper lobe subpleural treated nodule is unchanged with maximal thickness of approximately 6 mm. The more inferior left upper lobe nodule is stable measuring approximately 6 mm as well. Continued improvement in left lower lobe consolidations. No new consolidation. Upper abdomen: Allowing for the phase of contrast, no acute abnormality in the upper abdomen is seen. Musculoskeletal: No concerning osseous lesion. IMPRESSION: 1. No pulmonary emboli or acute aortic syndrome. 2. No pneumonia. Continued improvement in left lower lobe consolidations which are likely due to pneumonia or aspiration. Dictated by: Dictated on workstation # [id number]
[2020-09-20] MEDS ORDERED: PRD20T PO (18:37)
[2020-09-20 23:03] VITALS: BP 117/67
[2020-09-20] MEDS ORDERED: RT-ALBUTEROL SULF 2.5 MG/3 ML PRE-MIX VIAL INH PRN (23:15)
[2020-09-21] VITALS (22 sets, daily range): BP systolic 109–161; BP diastolic 63–87
[2020-09-21] MEDS: RT-ALBUTEROL/IPRATROPIUM 3 ML (DUONEB) VIAL INH SCH ×7 (01:44→22:53)
[2020-09-21] MEDS: CATHETER FLUSH 10 ML SYR IV SCH ×3 (05:21→20:19)
[2020-09-21] MEDS ORDERED: methylPREDNISolone 125 MG (Solu-MEDROL) VIAL IVP SCH (09:00)
--- NOTE | 2020-09-21 09:09 | History & Physical-Hospitalist ---
History of Present Illness HPI/Chief Complaint Pt is a 75yoCM with a PMH of metastatic pancreatic cancer on Keytruda, COPD, and hypothyroidism who presented to the ER due to shortness of breath. It started abruptly on 09/18 and continued to worsen prompting him to seek evaluation in the ER yesterday. He had also started an oral antibiotic by the cancer center yesterday and took two doses of that. He originally had improvement with a breathing treatment but now states he's more short of breath and is awaiting a prn breathing treatment. Source: patient Date Seen 09/21/20 Time Seen by a Provider: 12:14 Attending Physician Demar Pepper MD PCP Laura Sampson Referring Physician Date of Admission September 20, 2020 at 22:17 Home Medications & Allergies Home Medications Reviewed patient Home Medication Reconciliation performed by pharmacy medication reconciliations thermal technician and/or nursing. Patients Allergies have been reviewed. Allergies Allergies Coded Allergies No Known Drug Allergies (Unverified06/20/19) Patient Social History Marrital Status: Tobacco Use?: Yes Tobacco type used: Cigarettes Smoking Status: Current Everyday Smoker Substance use?: No Alcohol Use?: No Pt stated abuse/neglect: No Immunizations Up To Date Influenza Vaccine Up-to-Date: Yes; Up-to-Date First/Initial COVID19 Vaccinat: 08/09/20 Second COVID19 Vaccination Rajan: [facility] Date of Pneumonia Vaccine: Feb 18, 2019 Current Status Do you have an Advance Directi: Yes Advance Directive Location: Home Communicates: Verbally Primary Language: Colombian Implanted or Applied Medical D: None Past Medical History Hypothyroidism, metastatic pancreatic cancer Family Medical History Family Hx: Non contributory Review of Systems Constitutional: No chills, No fever EENTM: no symptoms reported Respiratory: No cough; dyspnea on exertion, short of breath, wheezing Cardiovascular: no symptoms reported Gastrointestinal: No constipation, No diarrhea, No nausea, No vomiting Genitourinary: no symptoms reported Musculoskeletal: no symptoms reported Skin: no symptoms reported Psychiatric/Neurological: No Symptoms Reported Physical Exam Physical Exam Vital Signs Vital Signs - First Documented 09/20/20 17:01 Temp 37.7 Pulse 107 Resp 16 B/P (MAP) 149/65 (93) Pulse Ox 96 O2 Delivery Nasal Cannula O2 Flow Rate 3.00 Capillary Refill : Less Than 3 Seconds Height, Weight, BMI Height: '" Weight: lbs. oz. kg; 16.39 BMI Method: General Appearance: No Apparent Distress, Chronically ill, Thin HEENT: PERRL/EOMI, Moist Mucous Membranes Neck: Normal Inspection, Supple Respiratory: No Accessory Muscle Use, Crackles; No Wheezing Cardiovascular: Regular Rate, Rhythm, No Murmur Gastrointestinal: Normal Bowel Sounds, Non Tender, Soft Extremity: No Calf Tenderness, No Pedal Edema Neurologic/Psychiatric: Alert, Oriented x3, Normal Mood/Affect Skin: Normal Color, Warm/Dry Results Results/Procedures Labs Laboratory Tests 09/20/20 16:50 09/21/20 09:35 Patient resulted labs reviewed. Imaging: Reviewed Imaging Report [email or web address] [place] [place] NAME: MARTÍN VERAS [facility] REC#: [id number] PT STATUS: REG ER : 1945 PHYSICIAN: MAGDY MURCIA DO ADMIT DATE: 09/20/20/ER FS Signed Date of Exam:09/20/20 CHEST PA/LAT (2 VIEW) INDICATION: Shortness of breath and hypoxia. TECHNIQUE: PA and lateral chest obtained at 05:08 p.m. and compared to 09/11/2019. FINDINGS: Port-A-Cath is unchanged. The heart is normal in size. There is marked hyperinflation, compatible with COPD. There is no new consolidation or pneumothorax or pleural fluid. There are calcified granuloma in the right base. IMPRESSION: COPD changes with no new infiltrate or pleural fluid. Dictated by: Dictated on workstation # [id number] Dict: 09/20/20 1720 Trans: 09/20/202005 AS6 [id number] Interpreted by: ARMINDA LANDAVERDE MD Electronically signed by: ARMINDA LANDAVERDE MD 09/20/202005 [email or web address] [place] [place] NAME: RITOMARTÍN Singer [facility] REC#: [id number] PT STATUS: REG ER : 1945 PHYSICIAN: MAGDY MURCIA DO ADMIT DATE: 09/20/20/ER FS Signed Date of Exam:09/20/20 CT ANGIO CHEST W PROCEDURE: CT angiography Chest. TECHNIQUE: After intravenous administration of contrast, thin section axial CT angiography of the chest was performed. 3D MIP reconstructions were made. All CT scans use one or more of the following dose optimizing techniques: automated exposure control, MA and/or KvP adjustment based on a patient size and exam type, or iterative reconstruction. INDICATION: Shortness of breath. History of lung cancer. COMPARISON: CT chest of 06/17/2020. FINDINGS: Vasculature: No pulmonary emboli. No CT evidence of pulmonary hypertension or right ventricular strain. Thoracic aorta is normal in caliber. No aortic dissection or pseudoaneurysm. Heart and mediastinum: Thyroid is not visualized and may be hypoplastic or surgically absent. Stable right IJ Port-A-Cath. No supraclavicular, axillary, or intra-thoracic lymphadenopathy. The heart is normal in size without pericardial effusion. Pleura: No pleural effusion or pneumothorax. Lungs and airway: Severe centrilobular emphysema is again noted. The left upper lobe subpleural treated nodule is unchanged with maximal thickness of approximately 6 mm. The more inferior left upper lobe nodule is stable measuring approximately 6 mm as well. Continued improvement in left lower lobe consolidations. No new consolidation. Upper abdomen: Allowing for the phase of contrast, no acute abnormality in the upper abdomen is seen. Musculoskeletal: No concerning osseous lesion. IMPRESSION: 1. No pulmonary emboli or acute aortic syndrome. 2. No pneumonia. Continued improvement in left lower lobe consolidations which are likely due to pneumonia or aspiration. Dictated by: Dictated on workstation # [id number] Dict: 09/20/201817 Trans: 09/20/20 183 AS6 [id number] Interpreted by: POLA YAN MD Electronically signed by: POLA YAN MD 09/20/20 183 Assessment/Plan Admission Diagnosis Acute hypoxia respiratory failure Admission Status: Inpatient Order (span 2 midnights) Reason for Inpatient Admission: see below Assessment and Plan Acute hypoxia respiratory failure AECOPD Continue on steroids Start abx to continue CAP coerage from outpatient ABG ordered CTA with no PE Pulm consulted, appreciate recs Metastatic pancreatic cancer primary pancreatic cancer with mets to liver and lung Maintained on Keytruda Discussed with Dr Cedillo to ascertain current cancer status Hypothyroidism Continue home meds Diagnosis/Problems Diagnosis/Problems (1) COPD with acute exacerbation Status: Acute BUNNY JEAN MD September 21, 2020 09:09
[2020-09-21] MEDS ORDERED: LEVO112T2 PO (09:13)
[2020-09-21] MEDS ORDERED: BUDE10.2 IH (09:13)
[2020-09-21] MEDS ORDERED: RT-ALBUINH IH (09:13)
[2020-09-21] MEDS ORDERED: TIOT4MIS2 IH (09:13)
[2020-09-21] MEDS ORDERED: ATOR80TA76 PO (09:13)
[2020-09-21] MEDS ORDERED: FUROSEMIDE 40 MG/4 ML INJ (LASIX) IVP ONE (09:15)
[2020-09-21 09:43] LABS: HEMATOCRIT 39 % (40-54); HEMOGLOBIN 12.4 g/dL (13.3-17.7); MEAN CORPUSCULAR HEMOGLOBIN 27 pg (25-34); MEAN CORPUSCULAR HGB CONC 32 g/dL (32-36); MEAN CORPUSCULAR VOLUME 85 fL (80-99); PLATELET COUNT 64 10^3/uL (130-400); WHITE BLOOD COUNT 14.3 10^3/uL (4.3-11.0)
[2020-09-21] MEDS ORDERED: AZITHROMYCIN 250 MG TAB (ZITHROMAX) PO NR (09:58)
[2020-09-21 10:06] LABS: CHLORIDE 99 MMOL/L (98-107); SODIUM 135 MMOL/L (135-145)
[2020-09-21 10:07] LABS: CALCIUM 8.7 MG/DL (8.5-10.1)
[2020-09-21 10:08] LABS: GLUCOSE 137 MG/DL (70-105)
[2020-09-21 10:09] LABS: CARBON DIOXIDE 25 MMOL/L (21-32)
[2020-09-21 10:12] LABS: CREATININE SERUM 0.72 MG/DL (0.60-1.30); GFR ESTIMATED > 60
[2020-09-21 10:13] LABS: BUN/CREATININE RATIO 21
[2020-09-21 10:59] LABS: ABG BASE EXCESS 4.1 MMOL/L (-2.5-2.5); ABG OXYGEN SATURATION 97 % (94-100); ABG PCO2 60 MMHG (35-45); ABG PO2 86 MMHG (79-93); ABG TCO2 31.7 MMOL/L (21.0-31.0)
[2020-09-21 11:00] LABS: ABG PH 7.31 (7.37-7.43); ALLENS TEST YES-POS; INSPIRED O2 3; PATIENT TEMP 36.8; VENTILATOR NO
[2020-09-21] MEDS: cefTRIAXone FOR IV USE 1,000 MG in WATER (STERILE) FOR INJECTION 10 ML IV SCH (11:11)
[2020-09-21] MEDS ORDERED: LIDOCAINE UROJET 2% GEL 10 ML PKG ONE (12:02)
[2020-09-21] MEDS ORDERED: RT-ALBUTEROL/IPRATROPIUM 3 ML (DUONEB) VIAL INH PRN (15:45)
[2020-09-21] MEDS: RT--FLUTICASONE/SALMETEROL 232-14 (AIRDUO RespiCLICK) IH SCH (20:39)
[2020-09-22] VITALS (18 sets, daily range): BP systolic 108–177; BP diastolic 68–96
[2020-09-22] MEDS: RT-ALBUTEROL/IPRATROPIUM 3 ML (DUONEB) VIAL INH SCH ×3 (02:15→11:13)
[2020-09-22] MEDS ORDERED: morphine INJ 4 MG/ML 1 ML (VIAL/SYRINGE) ONE (03:01)
[2020-09-22] MEDS ORDERED: morphine INJ 10 MG/ML 1ML (SYR OR VIAL) IVP STA (03:03)
[2020-09-22 03:16] LABS: MEAN CORPUSCULAR HEMOGLOBIN 27 pg (25-34); MEAN CORPUSCULAR HGB CONC 32 g/dL (32-36); MEAN CORPUSCULAR VOLUME 85 fL (80-99)
[2020-09-22 03:17] LABS: HEMATOCRIT 39 % (40-54); HEMOGLOBIN 12.4 g/dL (13.3-17.7); PLATELET COUNT 56 10^3/uL (130-400); WHITE BLOOD COUNT 11.8 10^3/uL (4.3-11.0)
[2020-09-22 03:17] LABS: ABG BASE EXCESS 4.3 MMOL/L (-2.5-2.5); ABG OXYGEN SATURATION 97 % (94-100); ABG PCO2 60 MMHG (35-45); ABG PO2 91 MMHG (79-93); ABG TCO2 32.3 MMOL/L (21.0-31.0)
[2020-09-22 03:18] LABS: ABG PH 7.31 (7.37-7.43); ALLENS TEST YES-POS; INSPIRED O2 25%; VENTILATOR YES
[2020-09-22 03:19] LABS: PATIENT TEMP 35.9
[2020-09-22 03:28] LABS: CHLORIDE 99 MMOL/L (98-107); SODIUM 137 MMOL/L (135-145)
[2020-09-22 03:29] LABS: CALCIUM 8.8 MG/DL (8.5-10.1)
[2020-09-22 03:30] LABS: GLUCOSE 99 MG/DL (70-105)
[2020-09-22 03:31] LABS: CARBON DIOXIDE 27 MMOL/L (21-32)
[2020-09-22 03:33] LABS: GFR ESTIMATED > 60
[2020-09-22 03:34] LABS: BUN/CREATININE RATIO 35
[2020-09-22] MEDS ORDERED: LACTATED RINGERS 1,000 ML IV ONE (05:36)
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
[2020-09-22] MEDS ORDERED: morphine INJ 4 MG/ML 1 ML (VIAL/SYRINGE) IVP PRN (05:45)
[2020-09-22] MEDS ORDERED: LACTATED RINGERS 1,000 ML IV SCH (05:45)
[2020-09-22] MEDS ORDERED: MAGNESIUM 1 GM/100 ML IVPB 100 ML IV SCH (06:00)
[2020-09-22] MEDS ORDERED: KCL 20 MEQ TAB (K-DUR) PO SCH (06:00)
[2020-09-22] MEDS ORDERED: POTASSIUM CL 10MEQ/50ML IVPB 50 ML IV SCH (06:00)
[2020-09-22] MEDS: CATHETER FLUSH 10 ML SYR IV SCH ×2 (06:07→13:46)
[2020-09-22] MEDS: methylPREDNISolone 40 MG/ML (Solu-MEDROL) VIAL IVP SCH ×2 (06:08→13:46)
[2020-09-22] MEDS: RT--FLUTICASONE/SALMETEROL 232-14 (AIRDUO RespiCLICK) IH SCH (07:30)
--- NOTE | 2020-09-22 07:30 | Diagnostic Imaging Report ---
INDICATION: Respiratory distress. COMPARISON: 09/20/2020. FINDINGS: There is again noted severe obstructive bullous emphysematous disease. No acute infiltrates. No pneumothorax or pleural effusion. The heart is not enlarged. The Port-A-Cath on the right remains in good position. IMPRESSION: Severe COPD without acute change. Dictated by: Dictated on workstation # [id number]
[2020-09-22] MEDS ORDERED: cefTRIAXone 1,000 MG IV (ROCEPHIN) VIAL ONE (07:42)
[2020-09-22] MEDS ORDERED: WATER (STERILE) FOR INJECTION 10 ML ONE (07:42)
[2020-09-22] MEDS ORDERED: UMECLIDINIUM BROMIDE (INCRUSE ELLIPTA) 7'S IH SCH (08:00)
--- NOTE | 2020-09-22 08:04 | Progress Note - Hospitalist ---
Subjective HPI/CC On Admission Date Seen by Provider: September 22, 2020 Time Seen by Provider: 07:58 Pt is a 75yoCM with a PMH of metastatic pancreatic cancer on Keytruda, COPD, and hypothyroidism who presented to the ER due to shortness of breath. It started abruptly on 09/18 and continued to worsen prompting him to seek evaluation in the ER yesterday. He had also started an oral antibiotic by the cancer center yesterday and took two doses of that. He originally had improvement with a breathing treatment but now states he's more short of breath and is awaiting a prn breathing treatment. Subjective/Events-last exam Pt reports feeling a little better today on BiPAP. ABG relatively unchanged though. Patient states that he was told this morning he needed a ventilator. I told him at this moment he doesn't but if he worsens he may. He then asked what would happen if he declined a ventilator and I stated if he got to the point where he needed one and refused it he would probably . He nodded and said that would be ok. He then asked me to tell his that. I informed him I would be happy to have that conversation with him and his but it would be best to do it together. Focused Exam Lactate Level 09/22/20 05:35: Lactic Acid Level 1.78 Lactic Acid Level Laboratory Tests Test 09/22/20 05:35 Lactic Acid Level 1.78 MMOL/L (0.50-2.00) Objective Exam Vital Signs Vital Signs Date Time Temp Pulse Resp B/P (MAP) Pulse Ox O2 Delivery O2 Flow Rate FiO2 09/22/20 07:45 NIV Bilevel 28 09/22/20 07:30 36.3 09/22/20 06:07 21.00 09/22/20 06:00 89 139/76 (97) 90 09/22/20 05:00 13 Capillary Refill : Less Than 3 Seconds General Appearance: Anxious, Chronically ill, Mild Distress (on BiPAP but decreased work of breathing), Thin Respiratory: No Accessory Muscle Use, Rhonci, Other (on BiPAP) Cardiovascular: Regular Rate, Rhythm, No Murmur Gastrointestinal: Normal Bowel Sounds, Non Tender, Soft Extremity: No Calf Tenderness, No Pedal Edema Neurologic/Psychiatric: Alert, Oriented x3 Results/Procedures Lab Laboratory Tests 09/21/20 09:35 09/22/20 02:34 Patient resulted labs reviewed. Imaging: Reviewed Imaging Report Assessment/Plan Assessment and Plan Assess & Plan/Chief Complaint Acute hypoxic and hypercapnic respiratory failure AECOPD Continue on steroids Continue abx ABG unchanged this morning from yesterday but work of breathing much improved CTA with no PE Pulm consulted, appreciate recs tolerating BiPAP well but does not tolerate any time off of it, could be a good [facility] candidate as I anticipate he will take a while to wean off Metastatic pancreatic cancer primary pancreatic cancer with mets to liver and lung Maintained on Keytruda- may resume Discussed with Dr Cedillo to ascertain current cancer status Hypothyroidism Continue home meds Diagnosis/Problems Diagnosis/Problems (1) COPD with acute exacerbation Status: Acute BUNNY JEAN MD September 22, 2020 08:04
[2020-09-22] MEDS: cefTRIAXone FOR IV USE 1,000 MG in WATER (STERILE) FOR INJECTION 10 ML IV SCH (08:39)
[2020-09-22] MEDS ORDERED: AZITHROMYCIN 250 MG TAB (ZITHROMAX) PO SCH (09:00)
[2020-09-22] MEDS ORDERED: LEVOTHYROXINE 112 MCG (LEVOTHROID) TAB PO SCH (09:00)
--- NOTE | 2020-09-22 13:09 | Discharge Summary ---
Diagnosis/Chief Complaint Date of Admission September 20, 2020 at 22:17 Date of Discharge Discharge Date: September 22, 2020 Admission Diagnosis Acute hypoxia respiratory failure Primary Care AdriánLaura Vicente Discharge Diagnosis (1) COPD with acute exacerbation Status: Acute Discharge Summary Discharge Physical Exam Allergies: Coded Allergies: No Known Drug Allergies (Unverified , 06/20/19) Vitals & I&Os Vital Signs Date Time Temp Pulse Resp B/P (MAP) Pulse Ox O2 Delivery O2 Flow Rate FiO2 09/22/20 11:16 93 21 95 28.00 09/22/20 11:13 NIV Bilevel 28 09/22/20 11:00 126/72 (90) 09/22/20 07:30 36.3 General Appearance: No Apparent Distress, Chronically ill, Thin Respiratory: No Accessory Muscle Use, Rhonci, Other (on BiPAP) Cardiovascular: Regular Rate, Rhythm, No Murmur Neurologic/Psychiatric: Alert, Oriented x3 Hospital Course Pt was admitted to the hospital due to acute hypoxic respiratory failure. He was treated with IV steroids and IV antibiotics to cover for CAP and COPD exacerbation. He unfortunately progressed to needing BiPAP and was unable to be weaned off. He was unable to even tolerate being off long enough to take in an inhaler. Pulmonary was consulted. He was deemed an appropriate candidate for [facility]ACH for BiPAP weaning. He requested transfer there today. Labs (last 24 hrs) Laboratory Tests 09/22/20 02:34: White Blood Count 11.8H, Red Blood Count 4.60, Hemoglobin 12.4L, Hematocrit 39L, Mean Corpuscular Volume 85, Mean Corpuscular Hemoglobin 27, Mean Corpuscular Hemoglobin Concent 32, Red Cell Distribution Width 23.9H, Platelet Count 56L, Mean Platelet Volume , Sodium Level 137, Potassium Level 5.0, Chloride Level 99, Carbon Dioxide Level 27, Anion Gap 11, Blood Urea Nitrogen 28H, Creatinine 0.80, Estimat Glomerular Filtration Rate > 60, BUN/Creatinine Ratio 35, Glucose Level 99, Calcium Level 8.8, Magnesium Level 2.5H, Procalcitonin 0.07 09/22/20 03:03: Blood Gas Puncture Site RIGHT RADIAL, Blood Gas Patient Temperature 35.9, Arterial Blood pH 7.31*L, Arterial Blood Partial Pressure CO2 60H, Arterial Blood Partial Pressure O2 91, Arterial Blood HCO3 30H, Arterial Blood Total CO2 32.3H, Arterial Blood Oxygen Saturation 97, Arterial Blood Base Excess 4.3H, Tommy Test YES-POS, Blood Gas Ventilator Setting YES, Blood Gas Inspired Oxygen 25% 09/22/20 05:35: Lactic Acid Level 1.78 Patient resulted labs reviewed. Pending Labs Laboratory Tests 09/22/20 05:35: Lactic Acid Level 1.78 Imaging: Reviewed Imaging Report Discussion & Recommendations Discharge Planning: >30 minutes discharge planning Discharge Home Medications: Active Scripts Active Reported Proair Hfa (Albuterol Sulfate) 1 Puff Puff 2 Puff IH Q4H PRN Spiriva Respimat 2.5MCG/ACTUATION (Tiotropium Tell) 4 Gm Mist.inhal 2 Puff IH DAILY Symbicort 160-4.5 Mcg Inhaler (Budesonide/Formoterol Fumarate) 10.2 Gm Hfa.aer.ad 2 Puff IH BID Atorvastatin Calcium 80 Mg Tablet 40 Mg PO HS TAKES OF AN 80MG TAB Synthroid (Levothyroxine Sodium) 112 Mcg Tablet 112 Mcg PO DAILY Instructions to patient/family Please see electronic discharge instructions given to patient. BUNNY JEAN MD September 22, 2020 13:09
== END 2020-09-22 16:45 | DRG 189 ==
LOC: EDUNIT# 16:39 → ER FS 16:41 → 4TH 22:17 → ICU 09-21 12:06
PROVIDERS: ADMIT Internal Medicine; ATTEND Internal Medicine
PROC: 5A09457 Assistance with Respiratory Ventilation, 24-96 Consecutive Hours, Continuous Positive Airway Pressure (ICD-10-PCS; principal; 2020-09-21)
DX: J96.21 Acute and chronic respiratory failure with hypoxia (principal); J18.9 Pneumonia, unspecified organism; C25.9 Malignant neoplasm of pancreas, unspecified; C78.7 Secondary malignant neoplasm of liver and intrahepatic bile duct; C78.00 Secondary malignant neoplasm of unspecified lung; J96.22 Acute and chronic respiratory failure with hypercapnia; J43.9 Emphysema, unspecified; E03.9 Hypothyroidism, unspecified; F17.210 Nicotine dependence, cigarettes, uncomplicated; Z79.52 Long term (current) use of systemic steroids
CPT/HCPCS: 36415; 36600; 71045; 71046; 71275; 80048; 80053; 82805; 83605; 83735; 83880; 84145; 85007; 85027; 93005; 94640; 94660; 94760

== ENCOUNTER → 2020-10-21 | Outpatient (CLI) | payer OTHER ==
[~2020-10-21] MED LIST changes: +ATOR80TA76 PO; +BARIUM SUSPENSION 2.1% (VANILLA SILQ) 450 ML PO ONE; +BUDE10.2 IH; +CATHETER FLUSH 10 ML SYR IV PRN; +HOLD METFORMIN - RECEIVED CONTRAST 20 ML VIAL IV SCH; +IOHEXOL 350 MG/ML 100 ML (OMNIPAQUE 350) VIAL IV ONE; +LEVO112T2 PO; +NS 100 ML (IVPB) BAG IV ONE; +PRD20T PO; +RT-ALBUINH IH; +TIOT4MIS2 IH
--- NOTE | 2020-10-21 10:21 | Diagnostic Imaging Report ---
PROCEDURE: CT chest with contrast, CT abdomen and pelvis with and without contrast. TECHNIQUE: Pre and post intravenous contrast axial imaging of the abdomen and pelvis and post contrast axial imaging of the chest were performed. Auto Exposure Controls were utilized during the CT exam to meet ALARA standards for radiation dose reduction. INDICATION: Malignant neoplasm of the tail of the pancreas. COMPARISON: Comparison is made with prior CT chest study from 09/20/[address] abdomen and pelvis study from 06/17/2020. FINDINGS: CT CHEST: A right chest wall port has tip in the SVC. No axillary, hilar, or mediastinal lymphadenopathy is seen. There is no pericardial or pleural fluid identified. Centrilobular emphysematous changes throughout both lungs are again noted. Previously noted irregular nodule in the medial left upper lobe measures 5 mm compared with 6 mm. Density more inferiorly in the left upper lobe is stable at 6 mm. Right lower lobe subpleural nodules are stable. Subpleural nodule in the inferior aspect of the left upper lobe is stable. A nodule in the inferior right upper lobe, image 82, is stable at 4 mm. Chronic-appearing infiltrate in the left lower lobe appears stable. IMPRESSION: Stable CT chest when compared with prior exam dating back to 06/17/2020. Left basilar chronic infiltrate is stable. No new abnormality is identified. CT ABDOMEN AND PELVIS: No discrete liver mass is identified. The gallbladder is unremarkable. No biliary ductal dilatation is seen. No definite pancreatic mass or pancreatic ductal dilatation is identified. The spleen is unremarkable. No adrenal mass is detected. Cyst in the lower pole of the right kidney appears stable. No hydronephrosis is detected. Aorta and iliac vessels are heavily calcified but nonaneurysmal. Bowel loops remain normal in caliber. There is no obstruction. There is moderate distention to the urinary bladder. No free fluid is seen. No abdominal or pelvic lymphadenopathy is identified. Bony structures are nonacute. IMPRESSION: Continued stable CT abdomen and pelvis since exam from 06/17/2020. No definite evidence of metastatic disease or lymphadenopathy is identified. Dictated by: Dictated on workstation # [id number]
== END ==
LOC: RAD 09:15
PROVIDERS: ATTEND Internal Medicine Hematology & Oncology
DX: C25.2 Malignant neoplasm of tail of pancreas (principal)
CPT/HCPCS: 71260; 74178

== ENCOUNTER 2020-12-08 09:17 | Outpatient (RCR) | payer OTHER ==
[2020-09-15 09:11] LABS: BASOPHILS # (AUTO) 0.2 10^3/uL (0.0-0.1); BASOPHILS % (AUTO) 1 % (0-10); EOSINOPHILS # (AUTO) 0.2 10^3/uL (0.0-0.3); EOSINOPHILS % (AUTO) 1 % (0-10); HEMATOCRIT 37 % (40-54); LYMPHOCYTES # (AUTO) 2.7 10^3/uL (1.0-4.0); LYMPHOCYTES % (AUTO) 18 % (12-44); MEAN CORPUSCULAR HEMOGLOBIN 28 pg (25-34); MEAN CORPUSCULAR HGB CONC 33 g/dL (32-36); MEAN CORPUSCULAR VOLUME 84 fL (80-99); MONOCYTES # (AUTO) 2.1 10^3/uL (0.0-1.0); MONOCYTES % (AUTO) 14 % (0-12); NEUTROPHILS # (AUTO) 9.4 10^3/uL (1.8-7.8); NEUTROPHILS % (AUTO) 62 % (42-75); PLATELET COUNT 53 10^3/uL (130-400)
[2020-09-15 09:44] LABS: ALANINE AMINOTRANSFERASE 15 U/L (0-55); ALBUMIN 3.7 GM/DL (3.2-4.5); ALKALINE PHOSPHATASE 64 U/L (40-136); BILIRUBIN,TOTAL 0.5 MG/DL (0.1-1.0); BUN/CREATININE RATIO 19; CALCIUM 8.7 MG/DL (8.5-10.1); CARBON DIOXIDE 20 MMOL/L (21-32); CHLORIDE 105 MMOL/L (98-107); CREATININE SERUM 0.78 MG/DL (0.60-1.30); GFR ESTIMATED > 60; GLUCOSE 86 MG/DL (70-105); POTASSIUM 4.5 MMOL/L (3.6-5.0); SODIUM 138 MMOL/L (135-145); TOTAL PROTEIN 6.7 GM/DL (6.4-8.2)
[2020-10-27 09:18] LABS: EOSINOPHILS % (AUTO) 0 % (0-10)
[2020-10-27 09:20] LABS: BASOPHILS # (AUTO) 0.1 10^3/uL (0.0-0.1); BASOPHILS % (AUTO) 1 % (0-10); HEMATOCRIT 28 % (40-54); LYMPHOCYTES # (AUTO) 1.8 10^3/uL (1.0-4.0); LYMPHOCYTES % (AUTO) 32 % (12-44); MEAN CORPUSCULAR HEMOGLOBIN 28 pg (25-34); MEAN CORPUSCULAR HGB CONC 32 g/dL (32-36); MEAN CORPUSCULAR VOLUME 87 fL (80-99); MONOCYTES # (AUTO) 0.7 10^3/uL (0.0-1.0); MONOCYTES % (AUTO) 12 % (0-12); NEUTROPHILS # (AUTO) 2.9 10^3/uL (1.8-7.8); NEUTROPHILS % (AUTO) 51 % (42-75); PLATELET COUNT 45 10^3/uL (130-400); WHITE BLOOD COUNT 5.6 10^3/uL (4.3-11.0)
[2020-10-27 09:35] LABS: ALANINE AMINOTRANSFERASE 16 U/L (0-55); ALBUMIN 3.3 GM/DL (3.2-4.5); ALKALINE PHOSPHATASE 57 U/L (40-136); BILIRUBIN,TOTAL 0.5 MG/DL (0.1-1.0); BUN/CREATININE RATIO 19; CALCIUM 8.8 MG/DL (8.5-10.1); CARBON DIOXIDE 26 MMOL/L (21-32); CHLORIDE 103 MMOL/L (98-107); GFR ESTIMATED > 60; GLUCOSE 129 MG/DL (70-105); POTASSIUM 3.8 MMOL/L (3.6-5.0); SODIUM 137 MMOL/L (135-145); TOTAL PROTEIN 5.7 GM/DL (6.4-8.2)
[2020-10-27 10:58] LABS: BILIRUBIN,URINE NEGATIVE (NEGATIVE); CLARITY,URINE CLEAR; COLOR,URINE YELLOW; GLUCOSE, URINE (UA) NEGATIVE (NEGATIVE); KETONES,URINE NEGATIVE (NEGATIVE); LEUKOCYTE ESTERASE ,URINE TRACE (NEGATIVE); NITRITE,URINE NEGATIVE (NEGATIVE); PROTEIN,URINE NEGATIVE (NEGATIVE)
[2020-10-27 11:09] LABS: BACTERIA,URINE NEGATIVE /HPF; WBC,URINE RARE /HPF
[~2020-12-08 09:17] MED LIST changes: -BARIUM SUSPENSION 2.1% (VANILLA SILQ) 450 ML PO ONE; -CATHETER FLUSH 10 ML SYR IV PRN; -HOLD METFORMIN - RECEIVED CONTRAST 20 ML VIAL IV SCH; -IOHEXOL 350 MG/ML 100 ML (OMNIPAQUE 350) VIAL IV ONE; -NS 100 ML (IVPB) BAG IV ONE; +NS IV 1000 ML (CANCER CTR) IV SCH; +PEMBROLIZUMAB 200 MG in NS (IVPB) CANCER CENTER 50 ML IV SCH
[2020-12-08 09:45] LABS: BASOPHILS # (AUTO) 0.1 10^3/uL (0.0-0.1); BASOPHILS % (AUTO) 1 % (0-10); EOSINOPHILS # (AUTO) 0.1 10^3/uL (0.0-0.3); EOSINOPHILS % (AUTO) 1 % (0-10); HEMATOCRIT 35 % (40-54); HEMOGLOBIN 11.3 g/dL (13.3-17.7); LYMPHOCYTES # (AUTO) 2.5 10^3/uL (1.0-4.0); LYMPHOCYTES % (AUTO) 25 % (12-44); MEAN CORPUSCULAR HEMOGLOBIN 29 pg (25-34); MEAN CORPUSCULAR HGB CONC 32 g/dL (32-36); MEAN CORPUSCULAR VOLUME 89 fL (80-99); MONOCYTES % (AUTO) 19 % (0-12); NEUTROPHILS # (AUTO) 5.3 10^3/uL (1.8-7.8); NEUTROPHILS % (AUTO) 52 % (42-75); PLATELET COUNT 56 10^3/uL (130-400); WHITE BLOOD COUNT 10.2 10^3/uL (4.3-11.0)
[2020-12-08 10:10] LABS: ALANINE AMINOTRANSFERASE 14 U/L (0-55); ALBUMIN 3.7 GM/DL (3.2-4.5); ALKALINE PHOSPHATASE 62 U/L (40-136); BILIRUBIN,TOTAL 0.4 MG/DL (0.1-1.0); BUN/CREATININE RATIO 18; CALCIUM 9.2 MG/DL (8.5-10.1); CARBON DIOXIDE 26 MMOL/L (21-32); CHLORIDE 103 MMOL/L (98-107); CREATININE SERUM 0.79 MG/DL (0.60-1.30); GFR ESTIMATED > 60; GLUCOSE 105 MG/DL (70-105); SODIUM 136 MMOL/L (135-145); TOTAL PROTEIN 6.2 GM/DL (6.4-8.2)
== END 2020-12-14 | disposition home or self-care (01) ==
LOC: ONC 09:17
PROVIDERS: ATTEND Internal Medicine Hematology & Oncology
DX: Z51.11 Encounter for antineoplastic chemotherapy (principal); C25.2 Malignant neoplasm of tail of pancreas; C78.7 Secondary malignant neoplasm of liver and intrahepatic bile duct; D69.6 Thrombocytopenia, unspecified; D61.818 Other pancytopenia; J43.9 Emphysema, unspecified; R91.8 Other nonspecific abnormal finding of lung field; Z90.81 Acquired absence of spleen; Z90.410 Acquired total absence of pancreas; Z92.21 Personal history of antineoplastic chemotherapy
CPT/HCPCS: 36591; 80053; 81000; 84443; 85025; 86301; 96413

== ENCOUNTER 2021-01-28 10:29 | Emergency (ER) | payer OTHER ==
[~2021-01-28] VITALS: Ht 172.7 cm; Wt 54.4 kg
[~2021-01-28 10:29] MED LIST changes: -NS IV 1000 ML (CANCER CTR) IV SCH; -PEMBROLIZUMAB 200 MG in NS (IVPB) CANCER CENTER 50 ML IV SCH
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
--- OUTSIDE RECORDS SUMMARY | 2021-01-28 10:39 | XMS REPORT | Clinical Summary ---
Author Author [facility] Organization [facility] Address Unknown Phone Unavailable Care Team Providers Care Finish Inspector Name Role Phone Galindo Laura JOHN Unavailable Laura Medley PCP Source Comments Some departments are not documenting in the electronic medical record. If you d o not see the information that you expected, contact Release of Information in [facility] [employer] Information Management department at [phone] for further assistan ce in locating additional records.[facility] Allergies No Known Active Allergies Medications End Date Status Medication Sig Dispensed Refills Start Date Active budesonide-formoterol Inhale 2 0 (SYMBICORT) 160-4.5 puffs by mcg/actuation inhalation mouth into the lungs twice daily. Active tiotropium bromide Inhale 2 0 (SPRIVA RESPIMAT) 1.25 puffs by mcg/actuation inhaler mouth into the lungs daily. Active albuterol sulfate (PROAIR Inhale 2 0 HFA) 90 mcg/actuation puffs by aerosol inhaler mouth into the lungs every 6 hours as needed for Wheezing or Shortness of Breath. Shake well before use. Active levothyroxine (SYNTHROID) Take 137 mcg 0 137 mcg tablet by mouth daily 30 minutes before breakfast. Active aspirin 325 mg tablet Take 325 mg 0 by mouth daily as needed for Pain. Take with food. Active polyethylene glycol 3350 Take 527 g 3 0 (MIRALAX) 17 gram/dose seventeen g 0 powder by mouth daily. Active acetaminophen (TYLENOL) Take two 100 tablet 1 325 mg tablet tablets by 0 mouth every 6 hours as needed for Pain. Active senna/docusate Take one 100 tablet 1 (SENOKOT-S) 8.6/50 mg tablet by 0 tablet mouth twice daily as needed. Active traMADoL (ULTRAM) 50 mg Take one 40 tablet 0 tablet tablet to two 0 tablets by mouth every 6 hours as needed. Active Problems Problem Noted Date S/P exploratory laparotomy 08/27/2019 Overview: Formatting of this note might be differ ent from the original. 08/26/19: 1. Exploratory laparotomy. 2. Wedge biopsy of segment 4 of the nida er. Severe malnutrition 08/27/2019 COPD (chronic obstructive pulmonary disease) 020 Malignant neoplasm of body of pancreas 08/02/2019 Immunizations Name Administration Dates Next Due Hib conj vaccine, 4 dose 07/31/2019 (PRP-T) IM (ActHIB) Meningococcal Conjug 07/31/2019 Vaccine IM (MenACWY-D)(Menactra) Meningococcal Group B 07/31/2019 Vaccine (4-Cmp) 2 Dose Regimen (Bexsero) Pneumococcal 07/31/2019 Vaccine(13-[facility]/immunocompromised adult) Surgical History Surgery Date Site/Laterality Comments APPENDECTOMY 05/21/1960 - 05/20/1961 SKIN GRAFT 05/21/2003 - Right leg 05/20/2004 TONSILLECTOMY 1947, 1950 UPPER GASTROINTESTINAL ENDOSCOPY BRONCHOSCOPY 06/21/2019 - 07/19/2019 COLONOSCOPY x3 PANCREATECTOMY 08/26/2019 Abdomen/N/A EXPLORATORY LAP AROTOMY LIVER BIOPSY performed by Cyrus Galvan MD at [facility] OR Medical History Medical History Date Comments COPD (chronic obstructive pulmonary disease) (HCC) Gastrointestinal disorder gerd Hyperlipidemia Thrombocytopenia (HCC) Disorder of thyroid gland Pulmonary nodules left lung Social History Date Tobacco Use Types Packs/Day Years Used Current Every Day Smoker Cigarettes 0.3 58 Smokeless Tobacco: Never Used Comments Alcohol Use Standard Drinks/Week Never 0 (1 standard drink = 0.6 o z pure alcohol) Alcohol Habits Answer Date Recorded How often do you have a drink containing alcohol? Never 07/31/2019 How many drinks containing alcohol do you have on No t asked a typical day when you are drinking? How often do you have six or more drinks on one Not asked occasion? Comment: Not asked Sex Assigned at Date Recorded Not on file Last Filed Vital Signs Reading Time Taken Comments Vital Sign 113/58 08/29/2019 12:00 PM CDT Blood Pressure 107 08/29/2019 12:00 PM CDT Pulse 36.9 C (98.5 F) 08/29/2019 12:00 PM CDT Temperature 16 07/31/2019 10:11 AM CDT Respiratory Rate 91% 08/29/2019 12:00 PM CDT Oxygen Saturation - - Inhaled Oxygen Concentration 60.2 kg (132 lb 12.8 oz) 08/26/2019 6:39 PM CDT Weight 172.7 cm (5' 7.99") 08/26/2019 6:39 PM CDT Height 20.2 08/26/2019 6:39 PM CDT Body Mass Index Plan of Treatment Health Maintenance Due Date Last Done Comments DTAP/TDAP VACCINES (1 - 1962 Tdap) HEPATITIS C SCREENING 1963 PHYSICAL (COMPREHENSIVE) 1962 EXAM PNEUMONIA (PPSV23) 09/25/2019 07/31/2019 VACCINE (1 of 2 - PPSV23) INFLUENZA VACCINE 02/18/2021 01/30/2019, 03/21/2018 SHINGLES RECOMBINANT Completed 02/25/2019, VACCINE 12/20/2018 Goals Goal Patient Associated Recent Progress Patient-Stat Aut hor Goal Type Problems ed? Recover from illness Hospital Yes Rebecca Chester, RN Note: "To get better and get out of here" Results Not on filefrom Last 3 Months Insurance Type Payer Benefit Subscriber ID Effective Phone Address Plan / Dates Group Medicare [employer] [id number] 2019-P resent [id number] [address] Third Self [address] [place] (Home) [place], [place] [address] Liability Advance Directives Patient Stereotype Caster Explanation Type Date Recorded Advance 08/01/2019 12:00 AM Directive/DPOA Date Inactivated Comments Code Status Date Activated 08/29/2019 3:50 PM Full Code 08/26/2019 6:32 PM Provider has discussed Code Status Yes w/Patient or Family?
--- OUTSIDE RECORDS SUMMARY | 2021-01-28 10:39 | XMS REPORT | Clinical Summary ---
Author Author [facility] Organization [facility] Address Unknown Phone Unavailable Care Team Providers Care Window Air Conditioner Installer Name Role Phone GalindoLaura DORA PCP Allergies No Known Active Allergies Medications End Date Status Medication Sig Dispensed Refills Start Date Active acetaminophen (TYLENOL) Take 1,000 mg 0 500 MG tablet by mouth every 6 (six) hours as needed. Active atorvastatin (LIPITOR) 80 Take 40 mg by 0 MG tablet mouth. Active levothyroxine (SYNTHROID, Take 125 mcg 0 LEVOTHROID) 125 MCG by mouth. tablet Active sildenafil (VIAGRA) 100 Take 100 mg 0 MG tablet by mouth. Active omeprazole (PRILOSEC) 40 Take 1 30 capsule 1 1 /201 MG capsule capsule (40 9 mg total) by mouth daily. Active Problems Problem Noted Date Gastroesophageal reflux disease 04/11/2019 Overview: Formatting of this note might be differ ent from the original. Added automatically from request for boyd rgery [id number] Polyp of colon 04/11/2019 Overview: Formatting of this note might be differ ent from the original. Added automatically from request for boyd rgery [id number] Family History Medical History Relation Name Comments Colon cancer Father Diabetes Father Heart failure Father No Known Problems Mother Relation Name Status Comments Father Mother Social History Date Tobacco Use Types Packs/Day Years Used Current Every Day Smoker Cigarettes 1 Smokeless Tobacco: Never Used Comments Alcohol Use Standard Drinks/Week Never 0 (1 standard drink = 0.6 o z pure alcohol) Alcohol Habits Answer Date Recorded How often do you have a drink containing alcohol? Never 04/11/2019 How many drinks containing alcohol do you have on No t asked a typical day when you are drinking? How often do you have six or more drinks on one Not asked occasion? Sex Assigned at Date Recorded Not on file Last Filed Vital Signs Reading Time Taken Comments Vital Sign 114/72 05/19/2019 11:02 AM OFFICE WORKER Blood Pressure 77 05/19/2019 11:02 AM OFFICE WORKER Pulse 36.3 C (97.4 F) 05/19/2019 10:38 AM OFFICE WORKER Temperature 20 05/19/2019 11:02 AM OFFICE WORKER Respiratory Rate 97% 05/19/2019 11:00 AM OFFICE WORKER Oxygen Saturation - - Inhaled Oxygen Concentration 64 kg (141 lb) 05/19/2019 9:30 AM OFFICE WORKER Weight 172.7 cm (5' 8") 05/19/2019 9:30 AM OFFICE WORKER Height 21.44 05/19/2019 9:30 AM OFFICE WORKER Body Mass Index Plan of Treatment Health Maintenance Due Date Last Done Comments Advance Directive has 1945 been filed Hepatitis C Screen 1945 Medicare Annual Wellness 1945 Td/Tdap# 1945 Tobacco Cessation 1945 Counseling # Pneumococcal Vaccine: 65+ 1950 Years (1 of 2 - PPSV23) COVID-19 Vaccine (1) 1956 Zoster Vaccine# (1 of 2) 1994 Advance Directive 2009 Conversation Depression Screening 2009 PHQ-9 # Patient Needs Advance 2009 Directive Fall Risk Assessment # 05/19/2020 05/19/2019 Influenza Vaccine (#1) 2021 Results Not on filefrom Last 3 Months Insurance Type Payer Benefit Subscriber ID Effective Phone Address Plan / Dates Group Medicare MEDICARE MEDICARE [id number] 2009-P [place] [address] [place], [place] [address] [address] Personal/F Self [address] [place] (Home) [place], [place] [address] Advance Directives For more information, please contact: [phone] Patient Order Takers Supervisor Explanation Type Date Recorded Health Care Directive
--- NOTE | 2021-01-28 11:15 | Diagnostic Imaging Report ---
INDICATION: Shortness of breath. EXAMINATION: Port-A-Cath COMPARISON: 09/22/2020 FINDINGS: Frontal and lateral views of the chest demonstrate hyperinflation compatible with COPD. Lungs are clear. The heart is normal. The Port-A-Cath is in good position. There is a questionable compression fracture involving L1 which is partially visualized. IMPRESSION: 1. COPD without acute infiltrate 2. Questionable L1 compression fracture. Dictated by: Dictated on workstation # [id number]
[2021-01-28] MEDS ORDERED: methylPREDNISolone 125 MG (Solu-MEDROL) VIAL IV STA (11:21)
[2021-01-28 11:42] LABS: BASOPHILS # (AUTO) 0.2 10^3/uL (0.0-0.1); BASOPHILS % (AUTO) 1 % (0-10); EOSINOPHILS # (AUTO) 0.1 10^3/uL (0.0-0.3); EOSINOPHILS % (AUTO) 1 % (0-10); HEMATOCRIT 40 % (40-54); HEMOGLOBIN 13.1 g/dL (13.3-17.7); LYMPHOCYTES # (AUTO) 2.7 X 10^3 (1.0-4.0); LYMPHOCYTES % (AUTO) 14 % (12-44); MEAN CORPUSCULAR HEMOGLOBIN 29 pg (25-34); MEAN CORPUSCULAR HGB CONC 33 g/dL (32-36); MEAN CORPUSCULAR VOLUME 87 fL (80-99); MONOCYTES # (AUTO) 3.2 X 10^3 (0.0-1.0); MONOCYTES % (AUTO) 16 % (0-12); NEUTROPHILS % (AUTO) 65 % (42-75); PLATELET COUNT 53 10^3/uL (130-400); WHITE BLOOD COUNT 19.9 10^3/uL (4.3-11.0)
[2021-01-28 11:45] LABS: BAND NEUTROPHILS 2 %; EOSINOPHILS % (MANUAL) 1 %; LYMPHOCYTES % (MANUAL) 16 %; MONOCYTES % (MANUAL) 15 %; NEUTROPHILS % (MANUAL) 65 %
[2021-01-28 11:46] LABS: ANISOCYTOSIS MODERATE; METAMYELOCYTES % 1 %; PLATELET ESTIMATE DECREASED; POIKILOCYTOSIS MODERATE; RBC MORPH ABNORMAL; TARGET CELLS SLIGHT
[2021-01-28 11:47] LABS: ACANTHOCYTES SLIGHT; ELLIPT/OVALOCYTES SLIGHT; SCHISTOCYTES SLIGHT
[2021-01-28 11:53] LABS: BILIRUBIN,TOTAL 0.4 MG/DL (0.1-1.0); CALCIUM 9.4 MG/DL (8.5-10.1); CREATININE SERUM 0.63 MG/DL (0.60-1.30); MAGNESIUM 2.1 MG/DL (1.6-2.4); POTASSIUM 4.5 MMOL/L (3.6-5.0)
[2021-01-28 11:54] LABS: ALBUMIN 4.2 GM/DL (3.2-4.5); TOTAL PROTEIN 7.3 GM/DL (6.4-8.2)
[2021-01-28] MEDS ORDERED: PRD20T PO (13:56)
[2021-01-28] MEDS ORDERED: DOXY100T2 PO (13:56)
[2021-01-28 14:00] VITALS: BP 141/70
== END 2021-01-28 14:00 | disposition home or self-care (01) ==
LOC: EDUNIT# 10:29 → ER FS 10:30
DX: J40 Bronchitis, not specified as acute or chronic (principal); J44.9 Chronic obstructive pulmonary disease, unspecified; E78.00 Pure hypercholesterolemia, unspecified; E03.9 Hypothyroidism, unspecified; Z20.822 Contact with and (suspected) exposure to COVID-19; Z79.899 Other long term (current) drug therapy; Z79.890 Hormone replacement therapy
CPT/HCPCS: 36415; 71046; 80053; 83735; 85007; 85027; 86141; 87430; 87636; 93005

== ENCOUNTER → 2021-02-28 | Outpatient (CLI) | payer OTHER ==
[~2021-02-28] MED LIST changes: +BARIUM SUSPENSION 2.1% (VANILLA SILQ) 450 ML PO ONE; +CATHETER FLUSH 10 ML SYR IV PRN; +DOXY100T2 PO; +HOLD METFORMIN - RECEIVED CONTRAST 20 ML VIAL IV SCH; +IOHEXOL 350 MG/ML 100 ML (OMNIPAQUE 350) VIAL IV ONE; +NS 100 ML (IVPB) BAG IV ONE
--- NOTE | 2021-02-28 12:11 | Diagnostic Imaging Report ---
PROCEDURE: CT chest with contrast, CT abdomen and pelvis with and without contrast. TECHNIQUE: Pre and post intravenous contrast axial imaging of the abdomen and pelvis and post contrast axial imaging of the chest were performed. Auto Exposure Controls were utilized during the CT exam to meet ALARA standards for radiation dose reduction. INDICATION: Malignant neoplasm of the tail of the pancreas, follow-up. COMPARISON: Correlation is made with prior CT from 10/21/2020. CT CHEST: Right-sided chest wall port remains in place. No axillary lymphadenopathy is identified. No definite mediastinal or hilar lymphadenopathy is detected. There is no pericardial or pleural fluid is detected. Centrilobular emphysematous changes are again noted. Irregular 4 mm density in the medial left upper lobe is stable. Irregular density more inferiorly in the left upper lobe is stable at 5 mm. A right middle lobe nodule is stable at 4 mm. There are calcified nodules in both lung bases consistent with granulomas. No new nodules are seen. IMPRESSION: Stable chest CT when compared with examination from October 2020. CT ABDOMEN AND PELVIS: No discrete liver mass is identified. The gallbladder is unremarkable. No biliary ductal dilatation is seen. No discrete pancreatic mass or pancreatic ductal dilatation is identified. The spleen is unremarkable. No adrenal mass is identified. A right lower pole renal cyst is unchanged. Aorta and iliac vessels are heavily calcified but nonaneurysmal. There is a large amount of stool throughout the colon. No bowel obstruction is seen. There is no free fluid or fluid collection identified. No definite abdominal or pelvic lymphadenopathy is seen. The bladder and prostate are unremarkable. Bony structures are nonacute. IMPRESSION: Continued stable CT abdomen and pelvis since 10/21/2020. No pancreatic mass is identified. No abdominal or pelvic lymphadenopathy or evidence of metastatic disease is detected. Dictated by: Dictated on workstation # [id number]
== END ==
LOC: RAD 09:11
PROVIDERS: ATTEND Nurse Practitioner Adult Health
DX: C25.2 Malignant neoplasm of tail of pancreas (principal); C78.7 Secondary malignant neoplasm of liver and intrahepatic bile duct
CPT/HCPCS: 71260; 74178

== ENCOUNTER 2021-03-23 08:11 | Outpatient (RCR) | payer OTHER ==
[2021-01-19 09:39] LABS: HEMOGLOBIN 12.1 g/dL (13.3-17.7)
[2021-01-19 09:41] LABS: BASOPHILS # (AUTO) 0.1 10^3/uL (0.0-0.1); BASOPHILS % (AUTO) 1 % (0-10); EOSINOPHILS # (AUTO) 0.1 10^3/uL (0.0-0.3); EOSINOPHILS % (AUTO) 1 % (0-10); HEMATOCRIT 37 % (40-54); LYMPHOCYTES # (AUTO) 2.9 10^3/uL (1.0-4.0); LYMPHOCYTES % (AUTO) 27 % (12-44); MEAN CORPUSCULAR HEMOGLOBIN 29 pg (25-34); MEAN CORPUSCULAR HGB CONC 33 g/dL (32-36); MEAN CORPUSCULAR VOLUME 88 fL (80-99); MONOCYTES # (AUTO) 1.7 10^3/uL (0.0-1.0); MONOCYTES % (AUTO) 15 % (0-12); NEUTROPHILS # (AUTO) 5.7 10^3/uL (1.8-7.8); NEUTROPHILS % (AUTO) 53 % (42-75); PLATELET COUNT 63 10^3/uL (130-400); WHITE BLOOD COUNT 10.8 10^3/uL (4.3-11.0)
[2021-01-19 10:02] LABS: ALBUMIN 3.9 GM/DL (3.2-4.5); BILIRUBIN,TOTAL 0.3 MG/DL (0.1-1.0); CALCIUM 9.3 MG/DL (8.5-10.1); CREATININE SERUM 0.76 MG/DL (0.60-1.30); POTASSIUM 4.4 MMOL/L (3.6-5.0); TOTAL PROTEIN 6.6 GM/DL (6.4-8.2)
[2021-03-02 09:04] LABS: BASOPHILS # (AUTO) 0.1 10^3/uL (0.0-0.1); BASOPHILS % (AUTO) 1 % (0-10); LYMPHOCYTES % (AUTO) 22 % (12-44); MEAN CORPUSCULAR VOLUME 86 fL (80-99)
[2021-03-02 09:06] LABS: EOSINOPHILS # (AUTO) 0.1 10^3/uL (0.0-0.3); EOSINOPHILS % (AUTO) 1 % (0-10); HEMATOCRIT 36 % (40-54); HEMOGLOBIN 11.8 g/dL (13.3-17.7); LYMPHOCYTES # (AUTO) 2.4 10^3/uL (1.0-4.0); MEAN CORPUSCULAR HEMOGLOBIN 28 pg (25-34); MEAN CORPUSCULAR HGB CONC 33 g/dL (32-36); MONOCYTES # (AUTO) 1.9 10^3/uL (0.0-1.0); MONOCYTES % (AUTO) 17 % (0-12); NEUTROPHILS # (AUTO) 6.2 10^3/uL (1.8-7.8); NEUTROPHILS % (AUTO) 57 % (42-75); PLATELET COUNT 69 10^3/uL (130-400); WHITE BLOOD COUNT 10.9 10^3/uL (4.3-11.0)
[2021-03-02 09:07] LABS: SMEAR SCAN COMMENT YES
[2021-03-02 09:41] LABS: ALBUMIN 3.8 GM/DL (3.2-4.5); BILIRUBIN,TOTAL 0.6 MG/DL (0.1-1.0); CALCIUM 9.4 MG/DL (8.5-10.1); CREATININE SERUM 0.74 MG/DL (0.60-1.30); POTASSIUM 4.3 MMOL/L (3.6-5.0); TOTAL PROTEIN 6.5 GM/DL (6.4-8.2)
[~2021-03-23 08:11] MED LIST changes: -BARIUM SUSPENSION 2.1% (VANILLA SILQ) 450 ML PO ONE; -CATHETER FLUSH 10 ML SYR IV PRN; -HOLD METFORMIN - RECEIVED CONTRAST 20 ML VIAL IV SCH; -IOHEXOL 350 MG/ML 100 ML (OMNIPAQUE 350) VIAL IV ONE; -NS 100 ML (IVPB) BAG IV ONE; +NS IV 1000 ML (CANCER CTR) IV SCH; +PEMBROLIZUMAB 200 MG in NS (IVPB) CANCER CENTER 50 ML IV SCH
== END 2021-03-29 | disposition home or self-care (01) ==
LOC: ONC 08:11
PROVIDERS: ATTEND Internal Medicine Hematology & Oncology
DX: Z51.11 Encounter for antineoplastic chemotherapy (principal); C25.2 Malignant neoplasm of tail of pancreas; C78.7 Secondary malignant neoplasm of liver and intrahepatic bile duct; C78.00 Secondary malignant neoplasm of unspecified lung; D69.6 Thrombocytopenia, unspecified; D61.818 Other pancytopenia; F17.210 Nicotine dependence, cigarettes, uncomplicated; Z90.81 Acquired absence of spleen; Z90.410 Acquired total absence of pancreas; Z79.891 Long term (current) use of opiate analgesic; Z79.899 Other long term (current) drug therapy
CPT/HCPCS: 36591; 80053; 84443; 85025; 86301; 96413

== ENCOUNTER 2021-05-03 08:43 | Outpatient (RCR) | payer OTHER ==
[2021-04-12 09:09] LABS: HEMOGLOBIN 11.2 g/dL (13.3-17.7); MEAN CORPUSCULAR VOLUME 86 fL (80-99)
[2021-04-12 09:11] LABS: BASOPHILS # (AUTO) 0.1 10^3/uL (0.0-0.1); BASOPHILS % (AUTO) 1 % (0-10); EOSINOPHILS # (AUTO) 0.1 10^3/uL (0.0-0.3); EOSINOPHILS % (AUTO) 1 % (0-10); HEMATOCRIT 34 % (40-54); LYMPHOCYTES % (AUTO) 21 % (12-44); MEAN CORPUSCULAR HEMOGLOBIN 28 pg (25-34); MEAN CORPUSCULAR HGB CONC 33 g/dL (32-36); MONOCYTES # (AUTO) 1.3 10^3/uL (0.0-1.0); MONOCYTES % (AUTO) 13 % (0-12); NEUTROPHILS # (AUTO) 6.1 10^3/uL (1.8-7.8); NEUTROPHILS % (AUTO) 61 % (42-75); PLATELET COUNT 53 10^3/uL (130-400); WHITE BLOOD COUNT 9.9 10^3/uL (4.3-11.0)
[2021-04-12 09:28] LABS: ALBUMIN 3.6 GM/DL (3.2-4.5); BILIRUBIN,TOTAL 0.4 MG/DL (0.1-1.0); CALCIUM 8.8 MG/DL (8.5-10.1); CREATININE SERUM 0.7 MG/DL (0.60-1.30); POTASSIUM 4.3 MMOL/L (3.6-5.0); TOTAL PROTEIN 6.4 GM/DL (6.4-8.2)
== END 2021-05-20 | disposition home or self-care (01) ==
LOC: ONC 08:43
PROVIDERS: ATTEND Internal Medicine Hematology & Oncology
DX: Z51.11 Encounter for antineoplastic chemotherapy (principal); C25.2 Malignant neoplasm of tail of pancreas; C78.7 Secondary malignant neoplasm of liver and intrahepatic bile duct; C78.00 Secondary malignant neoplasm of unspecified lung; D69.6 Thrombocytopenia, unspecified; D61.818 Other pancytopenia; J43.9 Emphysema, unspecified; F17.210 Nicotine dependence, cigarettes, uncomplicated; Z90.81 Acquired absence of spleen; Z90.410 Acquired total absence of pancreas; Z79.891 Long term (current) use of opiate analgesic; Z79.899 Other long term (current) drug therapy; Z92.21 Personal history of antineoplastic chemotherapy
CPT/HCPCS: 36591; 80053; 85025; 86301; 96413

== ENCOUNTER 2021-05-24 09:27 | Outpatient (RCR) | payer OTHER ==
[2021-05-24 09:53] LABS: HEMATOCRIT 34 % (40-54); MEAN CORPUSCULAR VOLUME 86 fL (80-99)
[2021-05-24 09:55] LABS: BASOPHILS # (AUTO) 0.1 10^3/uL (0.0-0.1); BASOPHILS % (AUTO) 1 % (0-10); EOSINOPHILS # (AUTO) 0.1 10^3/uL (0.0-0.3); EOSINOPHILS % (AUTO) 1 % (0-10); LYMPHOCYTES # (AUTO) 2.3 10^3/uL (1.0-4.0); LYMPHOCYTES % (AUTO) 23 % (12-44); MEAN CORPUSCULAR HEMOGLOBIN 28 pg (25-34); MEAN CORPUSCULAR HGB CONC 33 g/dL (32-36); MONOCYTES # (AUTO) 1.5 10^3/uL (0.0-1.0); MONOCYTES % (AUTO) 15 % (0-12); NEUTROPHILS # (AUTO) 5.8 10^3/uL (1.8-7.8); NEUTROPHILS % (AUTO) 58 % (42-75); PLATELET COUNT 73 10^3/uL (130-400); WHITE BLOOD COUNT 9.9 10^3/uL (4.3-11.0)
[2021-05-24 10:18] LABS: ALBUMIN 3.8 GM/DL (3.2-4.5); BILIRUBIN,TOTAL 0.4 MG/DL (0.1-1.0); CREATININE SERUM 0.7 MG/DL (0.60-1.30); POTASSIUM 4.2 MMOL/L (3.6-5.0); TOTAL PROTEIN 6.5 GM/DL (6.4-8.2)
== END 2021-06-20 | disposition home or self-care (01) ==
LOC: ONC 09:27
PROVIDERS: ATTEND Internal Medicine Hematology & Oncology
DX: Z51.11 Encounter for antineoplastic chemotherapy (principal); Z45.2 Encounter for adjustment and management of vascular access device; C25.2 Malignant neoplasm of tail of pancreas; C78.7 Secondary malignant neoplasm of liver and intrahepatic bile duct; C78.00 Secondary malignant neoplasm of unspecified lung; D69.6 Thrombocytopenia, unspecified; D61.818 Other pancytopenia; J43.9 Emphysema, unspecified; F17.210 Nicotine dependence, cigarettes, uncomplicated; Z90.81 Acquired absence of spleen; Z90.410 Acquired total absence of pancreas; Z79.891 Long term (current) use of opiate analgesic; Z79.899 Other long term (current) drug therapy
CPT/HCPCS: 36591; 80053; 84443; 85025; 96413; 99213

== ENCOUNTER → 2021-06-27 | Outpatient (CLI) | payer OTHER ==
[~2021-06-27] MED LIST changes: +BARIUM SUSPENSION 2.1% (VANILLA SILQ) 450 ML PO ONE; +HOLD METFORMIN - RECEIVED CONTRAST 20 ML VIAL IV SCH; +IOHEXOL 350 MG/ML 100 ML (OMNIPAQUE 350) VIAL IV ONE; +NS 100 ML (IVPB) BAG IV ONE; -NS IV 1000 ML (CANCER CTR) IV SCH; -PEMBROLIZUMAB 200 MG in NS (IVPB) CANCER CENTER 50 ML IV SCH
--- NOTE | 2021-06-27 10:46 | Diagnostic Imaging Report ---
PROCEDURE: CT chest with contrast, CT abdomen and pelvis with and without contrast. TECHNIQUE: Pre and post intravenous contrast axial imaging of the abdomen and pelvis and post contrast axial imaging of the chest were performed. Auto Exposure Controls were utilized during the CT exam to meet ALARA standards for radiation dose reduction. 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 COMPARISON: Prior CT from 02/28/2021. FINDINGS: CT CHEST: A right chest wall port has the tip in the lower SVC. No axillary lymphadenopathy is detected. No mediastinal or hilar lymphadenopathy is detected. No pericardial or pleural fluid is identified. Centrilobular emphysematous changes are again noted. The density noted in the medial left upper lobe appears stable at 4 mm. The density more inferiorly in the left upper lobe is stable at 5 mm. The 3 to 4 mm nodule in the lateral right middle lobe is stable. There appear to be some tree-in-bud infiltrates which have developed in the left lower lobe since the prior study, likely on an infectious/inflammatory basis. No new mass is seen. IMPRESSION: 1. No evidence of thoracic lymphadenopathy. 2. Centrilobular emphysematous changes. Bilateral pulmonary micronodules are stable. The patient has developed some tree-in-bud infiltrates in the left lower lobe, likely on an infectious/inflammatory basis. CT ABDOMEN AND PELVIS: No discrete liver mass is identified. The gallbladder is unremarkable. No pancreatic mass is identified. The spleen is unremarkable. No adrenal mass is detected. No renal calculus or hydronephrosis is identified. The cyst in the lower pole of the right kidney and a tiny cortical cyst in the lower pole of the left kidney are stable. The aorta and iliac vessels remain heavily calcified but nonaneurysmal. No central retroperitoneal or mesenteric lymphadenopathy is seen. The bowel loops are of normal caliber. Moderate stool in the colon is again noted. There is no ascites. No definite pelvic lymphadenopathy is seen. The bladder is unremarkable. The bony structures are nonacute. IMPRESSION: Stable CT abdomen and pelvis since 02/28/2021. No abdominal or pelvic lymphadenopathy or evidence of metastatic disease is detected. Dictated by: Dictated on workstation # [id number]
== END ==
LOC: RAD 10:15
PROVIDERS: ATTEND Internal Medicine Hematology & Oncology
DX: J43.2 Centrilobular emphysema (principal); C25.9 Malignant neoplasm of pancreas, unspecified; C78.00 Secondary malignant neoplasm of unspecified lung; C78.7 Secondary malignant neoplasm of liver and intrahepatic bile duct; R91.8 Other nonspecific abnormal finding of lung field
CPT/HCPCS: 71260; 74178

== ENCOUNTER 2022-11-17 17:38 | Emergency (ER) | payer OTHER ==
[~2022-11-17] VITALS: Ht 172.7 cm; Wt 50.8 kg
[~2022-11-17 17:38] MED LIST changes: +ALBU8.5H6 IH; -BARIUM SUSPENSION 2.1% (VANILLA SILQ) 450 ML PO ONE; -HOLD METFORMIN - RECEIVED CONTRAST 20 ML VIAL IV SCH; -IOHEXOL 350 MG/ML 100 ML (OMNIPAQUE 350) VIAL IV ONE; -NS 100 ML (IVPB) BAG IV ONE; -RT-ALBUINH IH
[2022-11-17] MEDS ORDERED: NS IV 1000 ML 1,000 ML IV STA ×2 (17:55→19:35)
[2022-11-17 17:58] LABS: BASOPHILS # (AUTO) 0.9 10^3/uL (0.0-0.1); BASOPHILS % (AUTO) 2 % (0-10); EOSINOPHILS % (AUTO) 0 % (0-10); HEMATOCRIT 37 % (40-54); HEMOGLOBIN 11.6 g/dL (13.3-17.7); LYMPHOCYTES % (AUTO) 2 % (12-44); MEAN CORPUSCULAR HEMOGLOBIN 28 pg (25-34); MEAN CORPUSCULAR HGB CONC 32 g/dL (32-36); MEAN CORPUSCULAR VOLUME 89 fL (80-99); MONOCYTES # (AUTO) 6.8 10^3/uL (0.0-1.0); MONOCYTES % (AUTO) 14 % (0-12); NEUTROPHILS % (AUTO) 77 % (42-75); PLATELET COUNT 43 10^3/uL (130-400)
[2022-11-17] MEDS ORDERED: RT-ALBUTEROL/IPRATROPIUM 3 ML (DUONEB) VIAL INH ONE (18:00)
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
[2022-11-17 18:04] LABS: WHITE BLOOD COUNT 50.4 10^3/uL (4.3-11.0)
[2022-11-17 18:05] LABS: ABG BASE EXCESS 4.3 MMOL/L (-2.5-2.5); ABG OXYGEN SATURATION 65 % (94-100); ABG PCO2 66 MMHG (35-45); ABG PO2 38 MMHG (79-93); ABG TCO2 34.5 MMOL/L (21.0-31.0)
[2022-11-17 18:06] LABS: INSPIRED O2 10; VENTILATOR NO
--- NOTE | 2022-11-17 18:08 | Diagnostic Imaging Report ---
EXAMINATION: Chest 1 view. HISTORY: Hypoxia. COMPARISON: 09/22/2020. FINDINGS: Right-sided portacatheter is present. Heart size is normal. There are moderate interstitial opacities. No pneumothorax. There is left base airspace opacity. IMPRESSION: 1. Moderate interstitial opacities favored to represent edema. 2. Left base airspace opacity which may represent atelectasis or pneumonia. Dictated by: Dictated on workstation # [id number]
[2022-11-17 18:14] LABS: PATIENT TEMP 36.3
[2022-11-17 18:19] LABS: ALBUMIN 3.2 GM/DL (3.2-4.5); BILIRUBIN,TOTAL 0.5 MG/DL (0.1-1.0); CALCIUM 9.3 MG/DL (8.5-10.1); CREATININE SERUM 0.73 MG/DL (0.60-1.30); MAGNESIUM 2.2 MG/DL (1.6-2.4); POTASSIUM 5.3 MMOL/L (3.6-5.0); TOTAL PROTEIN 6.3 GM/DL (6.4-8.2)
[2022-11-17] MEDS ORDERED: CEFEPIME INJECTION 1,000 MG in NS (IVPB) 50 ML IV STA (18:33)
[2022-11-17 18:43] LABS: LYMPHOCYTES % (MANUAL) 4 %; MONOCYTES % (MANUAL) 17 %; NEUTROPHILS % (MANUAL) 79 %
[2022-11-17 18:44] LABS: ANISOCYTOSIS SLIGHT; HYPOCHROMASIA MODERATE; PLATELET ESTIMATE DECREASED; POIKILOCYTOSIS MODERATE; POLYCHROMASIA MODERATE
[2022-11-17] MEDS ORDERED: VANCOMYCIN INJECTION 1,000 MG in NS (IVPB) 250 ML IV STA (19:35)
[2022-11-17 20:58] VITALS: BP 108/51
== END 2022-11-17 21:16 | disposition short-term general hospital (02) ==
LOC: EDUNIT# 17:38 → ER FS 17:40
DX: A41.9 Sepsis, unspecified organism (principal); J43.9 Emphysema, unspecified; D64.9 Anemia, unspecified; J95.89 Other postprocedural complications and disorders of respiratory system, not elsewhere classified; F17.210 Nicotine dependence, cigarettes, uncomplicated; Z28.311 Partially vaccinated for COVID-19
CPT/HCPCS: 36415; 71045; 80053; 82805; 83605; 83735; 85007; 85027; 86141; 87040; 93041; 99291